=== PATIENT | male | born 1960 | race Caucasian/White ===

== ENCOUNTER → 2021-10-19 14:29 | Outpatient (BNVA) | payer BC, SELFPAY | PROVIDERS: PCP Internal Medicine; Visit Provider Hospitalist ==

== ENCOUNTER 2021-11-18 06:52 | Outpatient (REF) | payer BC, SELFPAY ==
--- NOTE | ~2021-11-18 | CT_ITS ---
EXAMINATION: CT CHEST WITH CONTRAST CLINICAL INFORMATION: Chronic obstructive pulmonary disease. COMPARISON: CT chest 07/30/2020. TECHNIQUE: Multidetector volumetric CT imaging of the chest was obtained after the administration of 50 mL of Omnipaque 350 intravenous contrast without immediate adverse reactions. Axial MIP volume rendering provided. Sagittal and coronal reformatted images were obtained. This CT examination was performed using dose optimization techniques as appropriate, variously including the following: *Automated exposure control *Adjustment of mA and/or kV according to patient size (this includes techniques or standardized protocols for targeted exams where dose is matched to indication/reason for exam; i.e. extremities or head) *Use of iterative reconstruction technique DLP: 136 mGy-cm FINDINGS: Lungs: *Unchanged 2 mm benign punctate calcified granuloma right upper pulmonary lobe (series 7 image 106) unchanged compared with 07/30/2020. *Unchanged 3 mm pleural-based nodule superior segment of the right lower pulmonary lobe (series 7 image 63). *Unchanged chronic mild herniation of the right lung into the right lateral intercostal space between the fourth and fifth ribs and posterior costal space between the right ninth and 10th ribs. *The 2 mm nodule which was noted in the lingula on the comparison exam which is stable at that time is without a specific correlate on the current exam. Several coarse benign-appearing reticular opacities within the lingula are increased in prominence and may represent minimal chronic parenchymal scarring. *Unchanged 5 mm left lower lobe solid noncalcified nodule (series 7 image 162). *Unchanged 2 mm subplural noncalcified pulmonary nodule left lower pulmonary lobe series 7 image 164. *Unchanged 2 mm subpleural noncalcified pulmonary nodule within the right lung base (series 7 image 167). *Moderate centrilobular emphysema of the lungs is noted along with mild biapical pleural parenchymal scarring. Mediastinum: No lymphadenopathy. Mild scattered calcific atherosclerosis. The ascending thoracic aorta measures up to 3.7 cm in transaxial dimension, at the upper limits of normal. Normal caliber of the main and central pulmonary arteries. Normal heart size. No pericardial thickening or fluid collections. CHEST WALL: No axillary lymphadenopathy. Visualized abdominal structures: Cholecystectomy clips noted. The benign-appearing right renal cyst measuring at least 6.5 cm in diameter is partially included in the image [id number] and is grossly unchanged. This finding is benign in appearance and requires no additional imaging follow-up on the basis of this examination. Normal appearance of the adrenal glands. Osseous structures: Minimal multilevel endplate osteophytosis of the thoracic spine. CT/CT chest w con IMPRESSION: *Multiple stable, benign-appearing pulmonary nodules which on the basis of this exam and the report of stability dating back to 08/15/2018 noted on the comparison exam of 07/30/2020 are overwhelmingly likely to be benign and do not specifically warranted additional imaging follow-up on the basis of the 2017 revised Fleischner Society pulmonary nodule recommendations. *Centrilobular emphysema.
[2021-11-18 07:29] LABS: Anion Gap 12 (12-20); Blood Urea Nitrogen 23 mg/dL (9-16); Calcium 10.2 mg/dL (8.4-10.2); Carbon Dioxide 28 mmol/L (22-29); Chloride 106 mmol/L (96-108); Estimated Glomerular Filt Rate > 60; Glucose Random 120 mg/dL (60-115); Sodium 141 mmol/L (135-145)
[2021-11-18] MEDS: iohexoL 350 MG/ML 100 ML INFUS..BTL 65 ML IV (08:49)
== END 2021-11-18 06:53 | disposition home or self-care (01) ==
LOC: HO.CT 06:52
PROVIDERS: PCP Internal Medicine; Visit Provider Hospitalist
DX: J44.9 Chronic obstructive pulmonary disease, unspecified (principal); R91.8 Other nonspecific abnormal finding of lung field; I71.9 Aortic aneurysm of unspecified site, without rupture; C34.90 Malignant neoplasm of unspecified part of unspecified bronchus or lung
CPT/HCPCS: 36415; 71260; 80048; Q9967

== ENCOUNTER → 2022-01-20 10:49 | Outpatient (BNVA) | payer BC, SELFPAY | PROVIDERS: PCP Internal Medicine; Visit Provider Hospitalist | DX: J44.9 Chronic obstructive pulmonary disease, unspecified (principal); R91.8 Other nonspecific abnormal finding of lung field; C34.90 Malignant neoplasm of unspecified part of unspecified bronchus or lung; I71.9 Aortic aneurysm of unspecified site, without rupture ==

== ENCOUNTER 2022-08-13 08:22 | Outpatient (REF) | payer BC, SELFPAY ==
--- NOTE | 2022-08-13 17:36 | PFT_ITS ---
INDICATION: Dyspnea. SPIROMETRY: FEV1 to FVC of 43% with an FEV1 of 2.12 L which is 67% predicted and an FVC of 4.88 L, which is 117% predicted. There was a significant response to bronchodilators noted to note. There is also significant small airways disease. The maximum voluntary ventilation 59% predicted. LUNG VOLUMES: Total lung capacity 105% predicted with a residual volume of 102% predicted. DIFFUSION CAPACITY: DLCO 75% predicted. INTERPRETATION: There was an obstructive ventilatory defect consistent with moderate COPD. There was a significant response to bronchodilators noted. In addition to that, the patient does have significant small airways disease contributing to his symptoms of dyspnea. Although no evidence of any air trapping or hyperinflation at this time. The patient also has some mild diffusion impairment. Clinical correlation warranted. Mirza Humphreys MD MR/MODL / [id number]
== END 2022-08-13 08:23 | disposition home or self-care (01) ==
LOC: HO.RESP 08:22
PROVIDERS: PCP Internal Medicine; Visit Provider Hospitalist
DX: J41.0 Simple chronic bronchitis (principal)
CPT/HCPCS: 94060; 94727; 94729

== ENCOUNTER 2022-09-27 10:23 | Outpatient (REF) | payer BC, SELFPAY ==
--- NOTE | ~2022-09-27 | CT_ITS ---
EXAMINATION: CT CHEST WITHOUT CONTRAST CLINICAL INFORMATION: Follow up pulmonary nodules. COMPARISON: Previous chest CT scans, most recent in 10/2021. TECHNIQUE: Multidetector volumetric CT imaging of the chest was done. Axial MIP volume rendering provided. Sagittal and coronal reformatted images were obtained. This CT examination was performed using dose optimization techniques as appropriate, variously including the following: *Automated exposure control *Adjustment of mA and/or kV according to patient size (this includes techniques or standardized protocols for targeted exams where dose is matched to indication/reason for exam; i.e. extremities or head) *Use of iterative reconstruction technique DLP: 172 mGy-cm FINDINGS: LUNGS: Postoperative change following right upper lobe lobectomy. There is evidence of emphysema. There is biapical pleural and parenchymal scarring, right greater than left. This is unchanged. There are small pulmonary nodules that are stable. The largest pulmonary nodule measures 5 mm in the left lower lobe, axial image 410, series 7. No new pulmonary nodule. There is slight herniation of the right upper lobe into the right lateral chest wall in between the 4th and 5th ribs, and right lower lobe in between the right 9th and 10th ribs. This is unchanged. MEDIASTINUM: Upper normal size ascending thoracic aorta. Aortic arch and descending thoracic aorta are normal in caliber. Normal heart size. Small mediastinal lymph nodes. No enlarged lymph nodes. No pericardial effusion. CORONARY ARTERY CALCIFICATION: Mild. PLEURA: There is no pleural effusion. No pleural mass or thickening. AXILLA: No lymphadenopathy. UPPER ABDOMEN: Right renal cyst. Postcholecystectomy. OSSEOUS STRUCTURES: Unremarkable. CT/CT chest wo IV con IMPRESSION: Stable pulmonary nodules. Emphysema. Stable postoperative changes from right upper lobe lobectomy. Fleischner guidelines were followed.
== END 2022-09-27 10:24 | disposition home or self-care (01) ==
LOC: HO.CT 10:23
PROVIDERS: PCP Internal Medicine; Visit Provider Hospitalist
DX: R91.8 Other nonspecific abnormal finding of lung field (principal)
CPT/HCPCS: 71250

== ENCOUNTER → 2022-12-06 14:18 | Outpatient (BNVA) | payer BC, SELFPAY | PROVIDERS: PCP Internal Medicine; Visit Provider Hospitalist | DX: J44.1 Chronic obstructive pulmonary disease with (acute) exacerbation (principal); R91.8 Other nonspecific abnormal finding of lung field; G47.33 Obstructive sleep apnea (adult) (pediatric); I71.9 Aortic aneurysm of unspecified site, without rupture; Z99.89 Dependence on other enabling machines and devices | CPT/HCPCS: 96372; J2930 ==

== ENCOUNTER 2022-12-14 11:40 | Emergency (ER) | payer BC, SELFPAY ==
--- NOTE | ~2022-12-14 | US_ITS ---
EXAMINATION: LEFT LOWER EXTREMITY DEEP VENOUS ULTRASOUND CLINICAL INFORMATION: Left leg pain COMPARISON: None. TECHNIQUE: Duplex Doppler imaging with compression maneuvers were performed of the left lower extremity deep venous system. FINDINGS: The visualized common femoral, femoral and popliteal veins demonstrate normal compressibility and color flow without evidence of venous thrombosis. Visualized portions of the calf veins demonstrate normal color fill-in suggesting patency. There is no evidence of a Powell's cyst. US/US venous duplex LE LT IMPRESSION: No evidence of deep venous thrombosis involving the left lower extremity.
--- NOTE | ~2022-12-14 | XR_ITS ---
EXAMINATION: XR CHEST, 2 VIEWS CLINICAL INFORMATION: Cough COMPARISON: Chest CT dated 09/27/2022 TECHNIQUE: PA and lateral views of the chest were obtained. FINDINGS: Lungs are hyperlucent and hyperexpanded tendon consistent with underlying emphysema. No consolidation, pneumothorax, or pleural effusion. Cardiac and mediastinal contours are normal. Calcific atherosclerosis in the thoracic aorta. Degenerative disc disease in the thoracic spine. Old healed left-sided rib fractures. XR/XR chest 2V IMPRESSION: No acute cardiopulmonary findings. Pulmonary emphysema.
--- NOTE | ~2022-12-14 | CT_ITS ---
EXAMINATION: CT ANGIOGRAM OF THE CHEST WITH AND WITHOUT CONTRAST (CT PULMONARY ANGIOGRAM FOR PE) CLINICAL INFORMATION: Reason for Exam cough/sob/lle pain hx of lung cancer ? PE COMPARISON: None TECHNIQUE: Prior to contrast administration, noncontrast localization images were obtained. Subsequently, multidetector volumetric imaging was performed from the thoracic inlet to below the diaphragms following the administration of 65 mL Omnipaque 350 intravenous contrast. No contrast reaction reported Sagittal, coronal, and MIP oblique sagittal reformatted images were obtained on the CT workstation, uploaded to PACS, and reviewed. This CT examination was performed using dose optimization techniques as appropriate, variously including the following: *Automated exposure control *Adjustment of mA and/or kV according to patient size (this includes techniques or standardized protocols for targeted exams where dose is matched to indication/reason for exam; i.e. extremities or head) *Use of iterative reconstruction technique Total exam dose-length product 276 mGy-cm FINDINGS: QUALITY OF STUDY/CONTRAST BOLUS: Satisfactory. PULMONARY ARTERIES: No central or segmental pulmonary emboli. THORACIC AORTA: Borderline dilated ascending thoracic aorta measuring approximate 4-4.1 cm in diameter. Mild vascular calcifications. Arch origins patent. LUNG: Status post right upper lobectomy. Moderate centrilobular emphysema. 5 mm subpleural left lower lobe pulmonary nodule series 502 image 308 and adjacent smaller sub-4 mm nodules in the left lower lobe, unchanged since 09/27/2022. Small calcified granulomas in the right middle and left upper lobes redemonstrated. Few tiny pleural-based calcified granulomas in the right lower lobe. Mild apical pleural parenchymal thickening/scarring. Slightly more prominent irregular perifissural thickening along the upper aspect of the right oblique fissure in the middle lobe, image 51/457 and image 85. Findings also seen best on coronal images 65 through 68. No airspace consolidation. Mild linear scarring in the lingula. Mild bronchial wall thickening and mucous/secretions and lower lobe bronchi bilaterally. Central airways otherwise clear. No soft tissue mass at the right upper lobectomy resection margin. PLEURA: No pleural effusion or pneumothorax. MEDIASTINUM: Normal heart size. No pericardial effusion. No hilar or mediastinal lymphadenopathy. No evidence of septal bowing or right heart strain. CORONARY ARTERY CALCIFICATION: None visualized on this study. CHEST WALL/AXILLA: No axillary or internal mammary lymphadenopathy. OSSEOUS STRUCTURES: No acute fracture or suspicious osseous lesion. Mild multilevel degenerative disc disease. Mild splaying of the fourth and fifth ribs on the right consistent with prior thoracotomy. UPPER ABDOMEN: Status post cholecystectomy. Small hiatal hernia. Visualized upper abdominal viscera otherwise unremarkable. No reflux of contrast into the hepatic veins to suggest elevated right heart pressures. CT/CT angio chest PE protocol IMPRESSION: 1. No evidence of pulmonary embolus. 2. No airspace consolidation or effusions. 3. Moderate centrilobular emphysema. 4. Status post right upper lobectomy. Interval development of irregular linear perifissural thickening along the upper right oblique fissure at the right lung apex since most recent prior. Would suggest follow-up CT in 3 months to assess stability. 5. Unchanged existing small pulmonary nodules in the left lower lobe. VTE: negative
[2022-12-14 11:52] VITALS: BP 175/100; PULSE 84; RESP 20; TEMP 36.8; O2SAT 96; BMI 26.3
--- NOTE | 2022-12-14 11:52 | ED.LOWEXIN ---
HPI - Extremity Injury (Lower) General Chief Complaint: Extremity Problem <SALIMA Shaw - Last Filed: 12/14/22 11:54> Stated Complaint: Blood clot L leg? <SALIMA Shaw - Last Filed: 12/14/22 11:54> Time Seen by Provider: 12/14/22 12:52 <SALIMA Shaw - Last Filed: 12/14/22 11:54> Source: patient <SALIMA Rivas Last Filed: 12/14/22 16:40> Mode of arrival: ambulatory <SALIMA Rivas Last Filed: 12/14/22 16:40> Limitations: no limitations <SALIMA Rivas Last Filed: 12/14/22 16:40> History of Present Illness HPI Narrative: 62-year-old male with a past medical history of lung cancer status post resection and chemo in 2007 being followed by [facility], COPD/emphysema, strep this sleep apnea on CPAP who is presenting to the ER with complaints of left posterior thigh/ knee pain /lateral lower leg pain over the past few weeks worse today. Reports that he has also had cough with shortness of breath since September. Reports that he was treated for possible bronchitis infection 2-3 times since September and he continues with a cough and shortness of breath. He reports that he called his slide maker today in his slide maker sent him here to rule out DVT to his left lower extremity. He denies any fevers, chills, dizziness, headaches, neck pain / stiffness, chest pain, orthopnea, palpitations, nausea/ vomiting/ diarrhea, abdominal pain, flank pain, dysuria, lower extremity edema, recent travel or sick contacts, rashes, recent falls or trauma, sputum production or any other symptoms complaints or concerns at this time. <SALIMA Rivas Last Filed: 12/14/22 16:40> MD complaint: other ( Left leg pain) <SALIMA Rivas Last Filed: 12/14/22 16:40> Onset (ago): week(s) ( for the past few weeks worse in the past week) <SALIMA Rivas Last Filed: 12/14/22 16:40> Injury: Left: thigh and knee <SALIMA Rivas Last Filed: 12/14/22 16:40> Severity: mild <SALIMA Rivas - Last Filed: 12/14/22 16:40> Relieving factors: nothing <SALIMA Rivas - Last Filed: 12/14/22 16:40> Exacerbating factors: movement and palpation <SALIMA Rivas - Last Filed: 12/14/22 16:40> Context: other ( see above) <SALIMA Rivas - Last Filed: 12/14/22 16:40> Other symptoms: SOB ( and cough) <SALIMA Rivas - Last Filed: 12/14/22 16:40> Related Data Home Medications: Home Medications Medication Instructions Recorded Confirmed sildenafil 100 mg tablet 100 mg PO 01/20/22 nebulizers 09/10/22 azithromycin 250 mg tablet 250 mg PO DIRECTED 12/06/22 montelukast 10 mg tablet 10 mg PO DAILY 12/06/22 prednisone 20 mg tablet 20 mg PO BID 12/06/22 Previous Rx's Medication Instructions Recorded [facility] ##1 06/07/22 (inhalational spacing device) ipratropium 0.5 mg-albuterol 3 mg 3 ml inhalation BID 30 days #180 mL 09/17/22 (2.5 mg base)/3 mL nebulization soln albuterol sulfate 90 mcg/actuation 2 inh inhalation Q6H PRN shortness 10/06/22 aerosol inhaler of breath or wheezing 30 days #18 grams Symbicort 160 mcg-4.5 2 puff inhalation BID #10.2 ea 11/16/22 mcg/actuation HFA aerosol inhaler (budesonide-formoterol) prednisone 10 mg tablet See Rx Instructions PO DAILY 18 12/06/22 days #30 tabs tiotropium bromide 2.5 2 puff inhalation DAILY 30 days #1 12/06/22 mcg/actuation mist for inhalation ea (Spiriva Respimat) cyclobenzaprine 10 mg tablet 10 mg PO Q8H #14 tabs 12/14/22 <SALIMA Shaw Last Filed: 12/14/22 11:54> Allergies/Adverse Reactions: Allergies Allergy/AdvReac Type Severity Reaction Status Date / Time No Known Allergies Allergy Verified 12/06/22 14:31 <SALIMA Shaw - Last Filed: 12/14/22 11:54> Review of Systems Review of Systems: Constitutional : No Weight loss, No Fever, No Chills, No Night Sweats, No Fatigue, No Malaise ENT/Mouth : No Hearing loss, No Ear Pain, No Nasal Congestion, No Sinus Pain, No Hoarseness, No sore throat, No Rhinorrhea, No Swallowing Difficulty Eyes: No Eye Pain, No Swelling, No Redness, No Foreign Body, No Discharge, No Vision Changes Cardiovascular : No Chest Pain, + SOB, No Dyspnea on Exertion, No Orthopnea, No Edema, No Palpitations Respiratory : + Cough, No Sputum, No Wheezing, No Smoke Exposure, No Dyspnea Gastrointestinal : No Nausea, No Vomiting, No Diarrhea, No Constipation, No abdominal Pain, No Hematochezia, No Melena Genitourinary : no irregular bleeding, No Dysuria, No Urinary Frequency, No Hematuria, No Urinary Incontinence, No Urgency, No Flank Pain, No Urinary Flow Changes, No Hesitancy Musculoskeletal : + left thigh/knee pain posterior aspect joint pain, No Myalgias, No Joint Swelling Skin : No Skin Lesions, No rash Neuro : No Weakness, No Numbness, No Paresthesias, No Loss of Consciousness, No Dizziness, No Headache Psych : No Anxiety/Panic, No Depression, No SI/HI/AH/VH, No Social Issues, Heme/Lymph: No Bruising, No Bleeding,No Lymphadenopathy Endocrine : No Polyuria, No Polydipsia, No Temperature Intolerance <SALIMA Rivas - Last Filed: 12/14/22 16:40> Yes all other systems are reviewed and are negative <SALIMA Rivas - Last Filed: 12/14/22 16:40> [facility] Past Medical History Attestation statement: The following information was validated with the patient. <SALIMA Rivas - Last Filed: 12/14/22 16:40> Source: old records reviewed and nursing notes reviewed <SALIMA Rivas - Last Filed: 12/14/22 16:40> Medical History: Medical History Aortic aneurysm COPD (chronic obstructive pulmonary disease) Glaucoma Lung cancer DREW on CPAP Peripheral neuropathy Pulmonary nodules <SALIMA Shaw - Last Filed: 12/14/22 11:54> Social History Social History: Social History Patient Tobacco Use Status: Former Tobacco user Tobacco use type: Cigarette Years Smoked: 25 Years Advance Directives: Yes Advance Directives Information Provided: No Advance Directives on File: No <SALIMA Shaw - Last Filed: 12/14/22 11:54> Physical Exam Vital Signs: Vital Signs: Last Vital Signs Temp 98.3 F 12/14/22 15:49 Pulse 66 12/14/22 15:49 Resp 16 12/14/22 15:49 BP 151/101 H 12/14/22 15:49 Pulse Ox 95 12/14/22 15:49 O2 Del Method 12/14/22 15:49 BMI result Body Mass Index 26.3 <SALIMA Shaw - Last Filed: 12/14/22 11:54> Vital Signs: Last Vital Signs Temp 98.3 F 12/14/22 15:49 Pulse 66 12/14/22 15:49 Resp 16 12/14/22 15:49 BP 151/101 H 12/14/22 15:49 Pulse Ox 95 12/14/22 15:49 O2 Del Method 12/14/22 15:49 BMI result Body Mass Index 26.3 Vital signs reviewed. Blood pressure 175/100. Pulse normal. Respiration normal. Oxygen normal. Temperature normal. <SALIMA Rivas - Last Filed: 12/14/22 16:40> Appearance: Alert. Oriented X3. No acute distress. Head: Normal external exam. Normocephalic. Atraumatic. Eyes: PERRLA. EOMI. Conjunctiva and sclera normal. Eyelids normal. ENT: EAC normal. TM's Normal. Pharynx normal. Uvula midline. Moist mucous membranes. No lesions/ulcerations or masses noted on the tongue. Normal voice. No trismus noted. No drooling noted. No muffled voice noted. Neck: Normal inspection. Neck supple. FROM. No adenopathy. Thyroid Normal. No meningeal signs. CVS: Normal heart rate and rhythm. Heart sound normal. Pulses normal throughout. No murmurs/rales/gallops. Respiratory: No respiratory distress. Painless inspiration. Breath sounds normal. No wheezes/rales/rhonchi noted. Chest nontender. No accessory muscle usage noted or decreased air movement noted. Abdomen: Soft and nontender. Back: Full range of motion noted. Nontender. Skin: Skin warm and dry. Normal skin color. Normal skin turgor. No rashes/lesions/lacerations noted. Extremities: patient mild tenderness palpation to the posterior thigh and posterior knee although no obvious ligamentous or tendon injury noted to the left hip/knee / ankle and foot joint. He has full range of motion of the left hip/ankle/ foot and knee joint. There is no lower extremity edema or calf tenderness noted. There are no rashes or signs of infection noted. Otherwise all other Extremities exhibit normal range of motion and nontender. Neuro: Oriented X 3. No motor deficit. No sensory deficit. Reflexes normal. Normal steady gait. No focal neuro deficits noted. CN's II-XII intact bilaterally? Vascular: + radial pulses. Normal cap refill. No cyanosis noted to upper extremity nails <SALIMA Rivas - Last Filed: 12/14/22 16:40> Course Course Course Narrative: RME - 62 yo male with history of lung cancer s/p resection and chemo in 2007, COPD, DREW on CPAP who presents with left leg pain for the last several days. Recent cold/cough for last couple of weeks with lots of coughing, had some SOB and chest pains then that have resolved. COVID negative multiple times. He discussed his symptoms with Senior Bioinformatics Scientist who recommended he come to the ER to r/o DVT. <SALIMA Shaw - Last Filed: 12/14/22 11:54> Reevaluation(s) Reevaluation #1: 62 yo male with history of lung cancer s/p resection and chemo in 2007, COPD, DREW on CPAP who presents with left leg pain for the last several weeks worse in the past few days. Also reports a persistent cough that is nonproductive with shortness of breath since September. Patient most likely COPD/ emphysema chronic cough although due to history of lung cancer need to rule out PE. Also need to rule out DVT. H &P not consistent with pneumonia/pneumothorax /ACS/CHF although considered. therefore at this time will obtain labs, chest x-ray, venous duplex ultrasound of left lower extremity and a CT of chest for PE and re-evaluate. <SALIMA Rivas - Last Filed: 12/14/22 16:40> Time: 13:50 <SALIMA Rivas - Last Filed: 12/14/22 16:40> Reevaluation #2: labs reviewed patient with leukocytosis of 15,000. BUN 26 which is mildly increased when compared to prior. Random glucose 182. AST/ALT 65/51. Otherwise all other labs are within normal limits. Chest x-ray results revealed pulmonary emphysema otherwise no other acute processes noted. Venous duplex ultrasound of left lower extremity negative for DVT or any other acute processes. CTA of chest for PE negative for PE or consolidations or effusions although revealed emphysema and irregular linear rashel fissure thickening along the upper right oblique fissure at the right lung apex since most recent prior. Will suggest follow-up CT in 3 months to assess stability. on change existing small pulmonary nodules in left lower lobe otherwise no other acute processes noted. Therefore will DC home with instructions to follow-up with his PCP/ slide maker and to return if any new or worsening symptoms. Patient understands agrees with this plan. <SALIMA Rivas - Last Filed: 12/14/22 16:40> Time: 16:34 <SALIMA Rivas - Last Filed: 12/14/22 16:40> Medications Administered Discontinued Medications Generic Name Dose Route Start Last Admin Trade Name Freq PRN Reason Stop Dose Admin Iohexol 100 ml 12/14/22 15:31 12/14/22 15:32 Iohexol 350 Mg/Ml 100 Ml Infus..Btl IV 12/14/22 15:32 65 ml ONCE ONE Administration <SALIMA Shaw - Last Filed: 12/14/22 11:54> Medications Administered Discontinued Medications Generic Name Dose Route Start Last Admin Trade Name Freq PRN Reason Stop Dose Admin Iohexol 100 ml 12/14/22 15:31 12/14/22 15:32 Iohexol 350 Mg/Ml 100 Ml Infus..Btl IV 12/14/22 15:32 65 ml ONCE ONE Administration <SALIMA Rivas - Last Filed: 12/14/22 16:40> Medical Decision Making Lab Data MDM Lab Attestation statement: I reviewed the patient's lab results. <SALIMA Rivas - Last Filed: 12/14/22 16:40> Result Diagrams: 12/14/22 14:15 12/14/22 14:15 <SALIMA Sahw - Last Filed: 12/14/22 11:54> Labs: Lab Results 12/14/22 12/14/22 12/14/22 Range/Units 14:15 14:15 14:15 WBC 15.0 H (4.8-10.8) X10*3/uL RBC 5.60 (4.60-5.80) X10*6/uL Hgb 16.3 (14.0-18.0) g/dl Hct 48.9 (42.0-52.0) % MCV 87.3 (80.0-98.0) fL MCH 29.1 (27.0-33.0) pg MCHC 33.3 (31.0-36.0) g/dl RDW 14.4 (11.0-16.0) % Plt Count 274 (160-400) X10*3/uL MPV 10.4 (9.4-12.4) fL Immature Gran % (Auto) Cancelled Neut % (Auto) Cancelled Lymph % (Auto) Cancelled [place] % (Auto) Cancelled Eos % (Auto) Cancelled Baso % (Auto) Cancelled Lymph # (Auto) Cancelled [place] # (Auto) Cancelled Eos # (Auto) Cancelled Baso # (Auto) Cancelled Abs Immat Gran (auto) Cancelled Absolute Neuts (auto) Cancelled Absolute Nucleated RBC 0.000 (0.0-0.012) X10*3/uL Nucleated RBC % (auto) 0.0 (0.0-0.2) /100WBC Neutrophils % (Manual) 74 H (45-73) % Band Neutrophils % 10 H (3-5) % Lymphocytes % (Manual) 11 L (20-40) % Monocytes % (Manual) 5 (2-11) % Abs Neuts (Manual) 12.6 H (2.0-8.3) X10*3/uL Lymphocytes # (Manual) 1.7 (1.2-4.9) X10*3/uL Monocytes # (Manual) 0.8 (0.1-1.2) X10*3/uL Platelet Estimate NORMAL (NORMAL) Plt Morphology Comment NORMAL RBC Morphology NOTED Tear Drop Cells 1+ (0-2) /OIF Travis Cells 1+ (0-2) /OIF Schistocytes 1+ (0-2) /OIF PT 10.4 (10.0-13.1) SEC INR 0.9 (0.9-1.1) APTT 25.5 L (26.0-36.4) SEC Sodium 136 (135-145) mmol/L Potassium 5.1 (3.3-5.1) mmol/L Chloride 101 (96-108) mmol/L Carbon Dioxide 24 (22-29) mmol/L Anion Gap 16 (12-20) BUN 26 H (9-16) mg/dL Creatinine 1.30 (0.5-1.4) mg/dL Estim Creat Clear Calc 56.2 Estimated GFR 56 Random Glucose 182 H (60-115) mg/dL Calcium 9.7 (8.4-10.2) mg/dL Magnesium 2.1 (1.6-2.6) mg/dL Total Bilirubin 0.3 (0.0-1.0) mg/dL AST 65 H (5-37) U/L ALT 51 H (0-40) U/L Alkaline Phosphatase 73 (39-117) U/L B-Natriuretic Peptide (<100) pg/mL Total Protein 7.0 (6.5-8.0) g/dL Albumin 4.2 (3.5-5.0) g/dL 12/14/22 Range/Units 14:15 WBC (4.8-10.8) X10*3/uL RBC (4.60-5.80) X10*6/uL Hgb (14.0-18.0) g/dl Hct (42.0-52.0) % MCV (80.0-98.0) fL MCH (27.0-33.0) pg MCHC (31.0-36.0) g/dl RDW (11.0-16.0) % Plt Count (160-400) X10*3/uL MPV (9.4-12.4) fL Immature Gran % (Auto) Neut % (Auto) Lymph % (Auto) [place] % (Auto) Eos % (Auto) Baso % (Auto) Lymph # (Auto) [place] # (Auto) Eos # (Auto) Baso # (Auto) Abs Immat Gran (auto) Absolute Neuts (auto) Absolute Nucleated RBC (0.0-0.012) X10*3/uL Nucleated RBC % (auto) (0.0-0.2) /100WBC Neutrophils % (Manual) (45-73) % Band Neutrophils % (3-5) % Lymphocytes % (Manual) (20-40) % Monocytes % (Manual) (2-11) % Abs Neuts (Manual) (2.0-8.3) X10*3/uL Lymphocytes # (Manual) (1.2-4.9) X10*3/uL Monocytes # (Manual) (0.1-1.2) X10*3/uL Platelet Estimate (NORMAL) Plt Morphology Comment RBC Morphology Tear Drop Cells /OIF Travis Cells /OIF Schistocytes /OIF PT (10.0-13.1) SEC INR (0.9-1.1) APTT (26.0-36.4) SEC Sodium (135-145) mmol/L Potassium (3.3-5.1) mmol/L Chloride (96-108) mmol/L Carbon Dioxide (22-29) mmol/L Anion Gap (12-20) BUN (9-16) mg/dL Creatinine (0.5-1.4) mg/dL Estim Creat Clear Calc Estimated GFR Random Glucose (60-115) mg/dL Calcium (8.4-10.2) mg/dL Magnesium (1.6-2.6) mg/dL Total Bilirubin (0.0-1.0) mg/dL AST (5-37) U/L ALT (0-40) U/L Alkaline Phosphatase (39-117) U/L B-Natriuretic Peptide 32 (<100) pg/mL Total Protein (6.5-8.0) g/dL Albumin (3.5-5.0) g/dL <SALIMA Shaw - Last Filed: 12/14/22 11:54> Lab Results 12/14/22 12/14/22 12/14/22 Range/Units 14:15 14:15 14:15 WBC 15.0 H (4.8-10.8) X10*3/uL RBC 5.60 (4.60-5.80) X10*6/uL Hgb 16.3 (14.0-18.0) g/dl Hct 48.9 (42.0-52.0) % MCV 87.3 (80.0-98.0) fL MCH 29.1 (27.0-33.0) pg MCHC 33.3 (31.0-36.0) g/dl RDW 14.4 (11.0-16.0) % Plt Count 274 (160-400) X10*3/uL MPV 10.4 (9.4-12.4) fL Immature Gran % (Auto) Cancelled Neut % (Auto) Cancelled Lymph % (Auto) Cancelled [place] % (Auto) Cancelled Eos % (Auto) Cancelled Baso % (Auto) Cancelled Lymph # (Auto) Cancelled [place] # (Auto) Cancelled Eos # (Auto) Cancelled Baso # (Auto) Cancelled Abs Immat Gran (auto) Cancelled Absolute Neuts (auto) Cancelled Absolute Nucleated RBC 0.000 (0.0-0.012) X10*3/uL Nucleated RBC % (auto) 0.0 (0.0-0.2) /100WBC Neutrophils % (Manual) 74 H (45-73) % Band Neutrophils % 10 H (3-5) % Lymphocytes % (Manual) 11 L (20-40) % Monocytes % (Manual) 5 (2-11) % Abs Neuts (Manual) 12.6 H (2.0-8.3) X10*3/uL Lymphocytes # (Manual) 1.7 (1.2-4.9) X10*3/uL Monocytes # (Manual) 0.8 (0.1-1.2) X10*3/uL Platelet Estimate NORMAL (NORMAL) Plt Morphology Comment NORMAL RBC Morphology NOTED Tear Drop Cells 1+ (0-2) /OIF Travis Cells 1+ (0-2) /OIF Schistocytes 1+ (0-2) /OIF PT 10.4 (10.0-13.1) SEC INR 0.9 (0.9-1.1) APTT 25.5 L (26.0-36.4) SEC Sodium 136 (135-145) mmol/L Potassium 5.1 (3.3-5.1) mmol/L Chloride 101 (96-108) mmol/L Carbon Dioxide 24 (22-29) mmol/L Anion Gap 16 (12-20) BUN 26 H (9-16) mg/dL Creatinine 1.30 (0.5-1.4) mg/dL Estim Creat Clear Calc 56.2 Estimated GFR 56 Random Glucose 182 H (60-115) mg/dL Calcium 9.7 (8.4-10.2) mg/dL Magnesium 2.1 (1.6-2.6) mg/dL Total Bilirubin 0.3 (0.0-1.0) mg/dL AST 65 H (5-37) U/L ALT 51 H (0-40) U/L Alkaline Phosphatase 73 (39-117) U/L B-Natriuretic Peptide (<100) pg/mL Total Protein 7.0 (6.5-8.0) g/dL Albumin 4.2 (3.5-5.0) g/dL 12/14/22 Range/Units 14:15 WBC (4.8-10.8) X10*3/uL RBC (4.60-5.80) X10*6/uL Hgb (14.0-18.0) g/dl Hct (42.0-52.0) % MCV (80.0-98.0) fL MCH (27.0-33.0) pg MCHC (31.0-36.0) g/dl RDW (11.0-16.0) % Plt Count (160-400) X10*3/uL MPV (9.4-12.4) fL Immature Gran % (Auto) Neut % (Auto) Lymph % (Auto) [place] % (Auto) Eos % (Auto) Baso % (Auto) Lymph # (Auto) [place] # (Auto) Eos # (Auto) Baso # (Auto) Abs Immat Gran (auto) Absolute Neuts (auto) Absolute Nucleated RBC (0.0-0.012) X10*3/uL Nucleated RBC % (auto) (0.0-0.2) /100WBC Neutrophils % (Manual) (45-73) % Band Neutrophils % (3-5) % Lymphocytes % (Manual) (20-40) % Monocytes % (Manual) (2-11) % Abs Neuts (Manual) (2.0-8.3) X10*3/uL Lymphocytes # (Manual) (1.2-4.9) X10*3/uL Monocytes # (Manual) (0.1-1.2) X10*3/uL Platelet Estimate (NORMAL) Plt Morphology Comment RBC Morphology Tear Drop Cells /OIF [place] Cells /OIF Schistocytes /OIF PT (10.0-13.1) SEC INR (0.9-1.1) APTT (26.0-36.4) SEC Sodium (135-145) mmol/L Potassium (3.3-5.1) mmol/L Chloride (96-108) mmol/L Carbon Dioxide (22-29) mmol/L Anion Gap (12-20) BUN (9-16) mg/dL Creatinine (0.5-1.4) mg/dL Estim Creat Clear Calc Estimated GFR Random Glucose (60-115) mg/dL Calcium (8.4-10.2) mg/dL Magnesium (1.6-2.6) mg/dL Total Bilirubin (0.0-1.0) mg/dL AST (5-37) U/L ALT (0-40) U/L Alkaline Phosphatase (39-117) U/L B-Natriuretic Peptide 32 (<100) pg/mL Total Protein (6.5-8.0) g/dL Albumin (3.5-5.0) g/dL <SALIMA Rivas - Last Filed: 12/14/22 16:40> Independent Interpretation I performed an independent interpretation of an: Plain X-Ray and Ultrasound <SALIMA Rivas - Last Filed: 12/14/22 16:40> Interpretation: chest x-ray results FINDINGS: Lungs are hyperlucent and hyperexpanded tendon consistent with underlying emphysema. No consolidation, pneumothorax, or pleural effusion. Cardiac and mediastinal contours are normal. Calcific atherosclerosis in the thoracic aorta. Degenerative disc disease in the thoracic spine. Old healed left-sided rib fractures. XR/XR chest 2V IMPRESSION: No acute cardiopulmonary findings. Pulmonary emphysema. Venous duplex ultrasound of left lower extremity FINDINGS: The visualized common femoral, femoral and popliteal veins demonstrate normal compressibility and color flow without evidence of venous thrombosis. ? Visualized portions of the calf veins demonstrate normal color fill-in suggesting patency. There is no evidence of a Powell's cyst. US/US venous duplex LE LT IMPRESSION: No evidence of deep venous thrombosis involving the left lower extremity. CTA of chest for PE FINDINGS: QUALITY OF STUDY/CONTRAST BOLUS: Satisfactory. PULMONARY ARTERIES: No central or segmental pulmonary emboli.? THORACIC AORTA: Borderline dilated ascending thoracic aorta measuring approximate 4-4.1 cm in diameter. Mild vascular calcifications. Arch origins patent. LUNG: Status post right upper lobectomy. Moderate centrilobular emphysema. 5 mm subpleural left lower lobe pulmonary nodule series 502 image 308 and adjacent smaller sub-4 mm nodules in the left lower lobe, unchanged since 09/27/2022. Small calcified granulomas in the right middle and left upper lobes redemonstrated. Few tiny pleural-based calcified granulomas in the right lower lobe. Mild apical pleural parenchymal thickening/scarring. Slightly more prominent irregular perifissural thickening along the upper aspect of the right oblique fissure in the middle lobe, image 51/457 and image 85. Findings also seen best on coronal images 65 through 68. No airspace consolidation. Mild linear scarring in the lingula. Mild bronchial wall thickening and mucous/secretions and lower lobe bronchi bilaterally. Central airways otherwise clear. No soft tissue mass at the right upper lobectomy resection margin. PLEURA: No pleural effusion or pneumothorax. MEDIASTINUM: Normal heart size.? No pericardial effusion.? No hilar or mediastinal lymphadenopathy.? No evidence of septal bowing or right heart strain. CORONARY ARTERY CALCIFICATION: None visualized on this study. CHEST WALL/AXILLA: No axillary or internal mammary lymphadenopathy. OSSEOUS STRUCTURES: No acute fracture or suspicious osseous lesion. Mild multilevel degenerative disc disease. Mild splaying of the fourth and fifth ribs on the right consistent with prior thoracotomy.? UPPER ABDOMEN: Status post cholecystectomy. Small hiatal hernia. Visualized upper abdominal viscera otherwise unremarkable.? No reflux of contrast into the hepatic veins to suggest elevated right heart pressures. CT/CT angio chest PE protocol IMPRESSION: 1.? No evidence of pulmonary embolus. 2.? No airspace consolidation or effusions. 3.? Moderate centrilobular emphysema. 4.? Status post right upper lobectomy. Interval development of irregular linear perifissural thickening along the upper right oblique fissure at the right lung apex since most recent prior. Would suggest follow-up CT in 3 months to assess stability. 5.? Unchanged existing small pulmonary nodules in the left lower lobe. ? VTE: negative <SALIMA Rivas - Last Filed: 12/14/22 16:40> Radiology Impression Discussion of test interpretation with radiology: I have reviewed the radiologist's reading. <SALIMA Rivas - Last Filed: 12/14/22 16:40> External Record Review External record reviewed: Inpatient record, Office record, Outpatient record, Prior outpatient labs, Prior outpatient radiology, Primary care record and Outside ED record <SALIMA Rivas - Last Filed: 12/14/22 16:40> Critical Care Time Critical Care Time Critical Care Time: Yes <SALIMA Rivas - Last Filed: 12/14/22 16:40> Total Critical Care Time: 60 <SALIMA Rivas - Last Filed: 12/14/22 16:40> Attestation: I personally attest to this time spent taking care of the patient <SALIMA Rivas - Last Filed: 12/14/22 16:40> Discharge Plan Discharge Clinical Impression: Muscle strain of left lower leg, Emphysema lung, Abnormal chest CT, Pulmonary nodules <SALIMA Shaw - Last Filed: 12/14/22 11:54> Patient Disposition: Home, Self-Care <SALIMA Shaw - Last Filed: 12/14/22 11:54> Instructions: Emphysema (ED), Musculoskeletal Pain (ED) <SALIMA Shaw - Last Filed: 12/14/22 11:54> Prescriptions: New cyclobenzaprine 10 mg tablet 10 mg PO Q8H Qty: 14 0RF No Action (DME) [facility] See Rx Instructions .ROUTE .COMPLEX Qty: 1 0RF Dose Instruction: DIRECTED Rx Instructions: DIRECTED ipratropium-albuterol 0.5 mg-3 mg(2.5 mg base)/3 mL solution for nebulization 3 ml inhalation BID 30 Days Qty: 180 11RF albuterol sulfate 90 mcg/actuation HFA aerosol inhaler 2 inh inhalation Q6H PRN (Reason: shortness of breath or wheezing) 30 Days Qty: 18 12RF budesonide-formoterol [Symbicort] 160-4.5 mcg/actuation HFA aerosol inhaler 2 puff inhalation BID Qty: 10.2 3RF sildenafil 100 mg tablet 100 mg PO montelukast 10 mg tablet 10 mg PO DAILY prednisone 20 mg tablet 20 mg PO BID azithromycin 250 mg tablet 250 mg PO DIRECTED Spiriva Respimat 2.5 mcg/actuation mist 2 puff inhalation DAILY 30 Days Qty: 1 6RF prednisone 10 mg tablet See Rx Instructions PO DAILY 18 Days Qty: 30 0RF Rx Instructions: PO daily; Take 4 tabs x 3 days, then 3 tabs x 3 days, then 2 tabs daily x 3 days, then 1 tab x 3 days to complete. (DME) nebulizers Misc See Rx Instructions .Route Rx Instructions: As directed <SALIMA Shaw - Last Filed: 12/14/22 11:54> Referrals: Mirza Humphreys MD [Physician] - Jhon Collins MD [Primary Care Provider] - <SALIMA Shaw - Last Filed: 12/14/22 11:54>
[2022-12-14 14:28] LABS: Hematocrit 48.9 % (42.0-52.0); Hemoglobin 16.3 g/dl (14.0-18.0); Mean Corpuscular HGB Conc 33.3 g/dl (31.0-36.0); Mean Corpuscular Hemoglobin 29.1 pg (27.0-33.0); Mean Corpuscular Volume 87.3 fL (80.0-98.0); Mean Platelet Volume 10.4 fL (9.4-12.4); Platelet Count 274 X10*3/uL (160-400); Red Cell Distribution Width 14.4 % (11.0-16.0)
[2022-12-14 14:51] LABS: B Type Natriuretic Peptide 32 pg/mL (<100)
[2022-12-14 14:58] LABS: INTERNATIONAL NORM RATIO 0.9 (0.9-1.1); Prothrombin Time 10.4 SEC (10.0-13.1)
[2022-12-14 15:00] LABS: Partial Thromboplastin Time 25.5 SEC (26.0-36.4)
[2022-12-14 15:02] LABS: Alanine Aminotransferase 51 U/L (0-40); Albumin Level 4.2 g/dL (3.5-5.0); Alkaline Phosphatase 73 U/L (39-117); Anion Gap 16 (12-20); Aspartate Amino Transferase 65 U/L (5-37); Bilirubin Total 0.3 mg/dL (0.0-1.0); Blood Urea Nitrogen 26 mg/dL (9-16); Calcium 9.7 mg/dL (8.4-10.2); Carbon Dioxide 24 mmol/L (22-29); Chloride 101 mmol/L (96-108); Creatinine Clr Calc Pharmacy 56.2; Estimated Glomerular Filt Rate 56; Glucose Random 182 mg/dL (60-115); Magnesium 2.1 mg/dL (1.6-2.6); Potassium 5.1 mmol/L (3.3-5.1); Sodium 136 mmol/L (135-145)
[2022-12-14 15:15] LABS: Band Neutrophils Percent 10 % (3-5); Lymphocytes Absolute Manual 1.7 X10*3/uL (1.2-4.9); Lymphocytes Percent Manual 11 % (20-40); Monocytes Absolute Manual 0.8 X10*3/uL (0.1-1.2); Monocytes Percent Manual 5 % (2-11); Neutrophils Absolute Manual 12.6 X10*3/uL (2.0-8.3); Neutrophils Percent Manual 74 % (45-73)
[2022-12-14 15:23] LABS: Burr Cells 1+ (0-2) /OIF; RBC Morphology NOTED; Schistocytes 1+ (0-2) /OIF
[2022-12-14 15:24] LABS: Platelet Estimate NORMAL (NORMAL); Platelet Morphology Comment NORMAL; Tear Drop Cells 1+ (0-2) /OIF
[2022-12-14] MEDS: iohexoL 350 MG/ML 100 ML INFUS..BTL IV (15:32)
[2022-12-14 15:49] VITALS: BP 151/101; PULSE 66; RESP 16; TEMP 36.8; O2SAT 95
--- NOTE | 2022-12-14 15:50 | MHC.EDTECH ---
THIS PCT ASSUMED CARE OF PT AT 1500 ,VITALS SIGN TAKEN ,PATIENT IS RESTING IN BED .
== END 2022-12-14 16:58 | disposition home or self-care (01) ==
PROVIDERS: Physician Assistant Medical; Emergency Provider Emergency Medicine; PCP Internal Medicine
DX: M79.662 Pain in left lower leg (principal); R60.0 Localized edema; J43.0 Unilateral pulmonary emphysema [MacLeod's syndrome]; M79.605 Pain in left leg; M54.50 Low back pain, unspecified; R06.02 Shortness of breath; Z79.899 Other long term (current) drug therapy; Z87.891 Personal history of nicotine dependence
CPT/HCPCS: 36415; 71046; 71275; 80053; 83735; 83880; 85007; 85027; 85610; 85730; 93971; 99283; 99284; Q9967

== ENCOUNTER → 2022-12-24 07:48 | Outpatient (BNVA) | payer BC, SELFPAY | PROVIDERS: PCP Internal Medicine; Visit Provider Psychiatry & Neurology Neurology | DX: G62.9 Polyneuropathy, unspecified (principal) ==

== ENCOUNTER → 2023-01-07 08:56 | Outpatient (REF) | payer BC, SELFPAY | LOC: HO.SL 08:56 | PROVIDERS: Visit Provider Psychiatry & Neurology Neurology | DX: G47.33 Obstructive sleep apnea (adult) (pediatric) (principal); G47.10 Hypersomnia, unspecified; R06.83 Snoring | CPT/HCPCS: 95806 ==

== ENCOUNTER 2023-01-11 07:08 | Outpatient (REF) | payer BC, SELFPAY ==
--- NOTE | ~2023-01-11 | MR_ITS ---
EXAMINATION: MR LUMBAR SPINE WITHOUT CONTRAST CLINICAL INFORMATION: Left leg pain. COMPARISON: None. TECHNIQUE: Multiplanar, multisequence imaging was obtained. FINDINGS: VERTEBRAL BODIES AND PARASPINAL STRUCTURES: The marrow signal is fairly homogeneous. There are mild edematous endplate changes at the L4-L5 and L5-S1 levels with a mild leftward curvature centered at L4-L5. No compression fractures identified. There is a slight posterior subluxation at the L3-L4 level. The paraspinal soft tissues appear normal. Multiple renal cysts are present bilaterally, the largest in the right kidney measuring up to 8 cm in transverse dimension, for which no further imaging follow-up is indicated. There are [id number] degenerative changes of the sacroiliac joints. CONUS MEDULLARIS AND CAUDA EQUINE: The distal cord, conus tip, and cauda equina nerve roots are normal. SPINAL LEVELS: L1-L2: No disc pathology, central canal stenosis, or foraminal narrowing. L2-L3: Very mild disc bulge and mild facet arthropathy without central canal stenosis and very mild foraminal encroachment. Shallow left posterolateral disc protrusion also noted. L3-L4: Uhgy-dn-[id number] loss of disc height and retrosubluxation with a broad-based posterior disc bulge impressing upon the ventral thecal sac and contacting the traversing L4 nerve roots. Mild facet arthropathy and mild central canal stenosis with mild bilateral foraminal narrowing. L4-L5: Severe loss of disc height and broad-based disc bulge with a small central disc protrusion and hypertrophic facet arthropathy result in [id number]-[id number] central canal stenosis. Bulging disc impresses upon the right L5 nerve root in the subarticular zone. Mild left and moderate right foraminal narrowing. L5-S1: Diffuse disc bulge and mild retrosubluxation with a small central protrusion and hypertrophic facet arthropathy. No central canal stenosis. Mild right foraminal narrowing. Endplate spurring impinges upon the exiting left L5 nerve root with moderate left foraminal encroachment. MR/MR lumbar spine wo con IMPRESSION: 1. Mild leftward lumbar spinal curvature and multilevel spondylitic changes. No compression fractures. 2. Broad-based posterior disc bulge at the L3-L4 level contacting the traversing L4 nerve roots. Mild central canal stenosis and foraminal narrowing. 3. Severe loss of disc height and disc bulge with a small central disc protrusion at the L4-L5 level. Zdvz-gt-dgdhlkpf central canal stenosis and bulging disc impressing upon the right L5 nerve root. Moderate right foraminal narrowing. 4. Small central disc protrusion and mild retrosubluxation at the L5-S1 level. Endplate spurring impinges upon the left L5 nerve root with [id number] left foraminal encroachment.
== END 2023-01-11 07:09 | disposition home or self-care (01) ==
LOC: HO.MRI 07:08
PROVIDERS: Visit Provider Psychiatry & Neurology Neurology
DX: M79.605 Pain in left leg (principal); M54.9 Dorsalgia, unspecified
CPT/HCPCS: 72148

== ENCOUNTER → 2023-01-12 09:32 | Outpatient (BNVA) | payer BC, SELFPAY | PROVIDERS: PCP Internal Medicine; Visit Provider Hospitalist | DX: Z13.89 Encounter for screening for other disorder (principal) ==

== ENCOUNTER → 2023-01-24 19:30 | Outpatient (REF) | payer BC, SELFPAY | LOC: HO.SL 19:30 | PROVIDERS: PCP Internal Medicine; Visit Provider Nurse Practitioner Family | DX: G47.33 Obstructive sleep apnea (adult) (pediatric) (principal) | CPT/HCPCS: 95811 ==

== ENCOUNTER → 2023-02-10 08:47 | Outpatient (BNVA) | payer BC, SELFPAY | PROVIDERS: PCP Internal Medicine; Visit Provider Psychiatry & Neurology Neurology | DX: M79.605 Pain in left leg (principal); M54.9 Dorsalgia, unspecified; R06.83 Snoring; G47.10 Hypersomnia, unspecified ==

== ENCOUNTER → 2023-03-23 10:47 | Outpatient (BNVA) | payer BC, SELFPAY | PROVIDERS: PCP Internal Medicine; Visit Provider Psychiatry & Neurology Neurology ==

== ENCOUNTER → 2023-04-06 09:20 | Outpatient (BNVA) | payer BC, SELFPAY | PROVIDERS: PCP Internal Medicine; Visit Provider Hospitalist | DX: J45.909 Unspecified asthma, uncomplicated (principal); R74.01 Elevation of levels of liver transaminase levels ==

== ENCOUNTER 2023-07-06 10:41 | Outpatient (AMB) | payer BC, SELFPAY ==
[2023-07-06 10:49] VITALS: BP 100/78; PULSE 82; O2SAT 97; BMI 26.6
--- NOTE | 2023-07-06 10:49 | A.OFFVIS_ITS ---
Intake Vital Signs 07/06/23 10:49 Height 5 ft 8 in Weight 175 lb BMI 26.6 BP 100/78 Blood Pressure Location Rt brachial Position Sitting Pulse 82 Pulse Source Pulse Oximeter Pulse Oximetry (%) 97 Oxygen Delivery Method Room Air Intake Visit Reasons: Follow up(talk about inspire) - Confirmed Intake Note: Patient presents for follow up. Allergies No Known Allergies Allergy (Verified 07/06/23 10:51) Medication List - Last Reconciled 07/06/23 by Naomy Hammond MD aspirin 81 mg PO DAILY atorvastatin 80 mg PO DAILY dapagliflozin propanediol (Farxiga) 5 mg PO DAILY famotidine 20 mg PO BID lisinopril 2.5 mg PO DAILY peg 400-propylene glycol (PF) 0.4-0.3 % (Systane Ultra (PF)) 1 drp ophthalmic (eye) BID-QID PRN Spiriva Respimat 2.5 mcg/actuation (tiotropium bromide) 2 puffs inhalation DAILY NS Symbicort 160-4.5 mcg/actuation (budesonide-formoterol) 2 puffs inhalation BID 90 days NS trazodone 50 mg PO BEDTIME HPI HPI Comments History of Present Illness Details 63y/o male with sleep apnea, CVA comes for follow up.He has severe sleep apnea AHI 31/hr and oxygen andir 76%. He is on CPAP at 12 cm of water- he has difficulty tolerating the CPAP . Dr. Fidel Radofrd- neurovascular specialist at [facility] -for subacute infarcts in [place] basal ganglia seen on MRI. I reviewed his notes and he suggested to co ntinue aspiirn 81mg qd atorvostatin 80mg qd for goal LDL of less than 70. He is OFF clopidogrel now and was not recommended to restart . clinically he is stable on speech therapy. [facility] Medical History Aortic aneurysm Back pain Cerebrovascular disease COPD (chronic obstructive pulmonary disease) Glaucoma Left leg pain Lung cancer DREW on CPAP Peripheral neuropathy Pulmonary nodules Snoring Transaminitis Surgical History H/O hernia repair H/O shoulder surgery History of colon surgery History of lung surgery Social History Alcohol intake: never Patient Tobacco Use Status: Former Tobacco user Tobacco use type: Cigarette Years Smoked: 25 Years Physical Exam Vital Signs: Last Vital Signs Pulse 82 07/06/23 10:49 BP 100/78 07/06/23 10:49 Pulse Ox 97 07/06/23 10:49 Oxygen Delivery Method Room Air 07/06/23 10:49 BMI result Body Mass Index 26.6 Const General: cooperative and anxious Nutritional Appearance: average body habitus Orientation/consciousness: patient oriented x3 Limitations: no limitations HEENT Head: Yes normal to inspection and Yes normocephalic Eyes Pupils: Equal, round and reactive pupils present Neck Neck: Yes normal visual inspection and Yes full ROM Neuro General: patient oriented x3, tone normal, moves all extremities and no focal motor deficits Cranial nerves: Yes Facial sensation intact/muscles of mastication intact, Yes Equal, round and reactive pupils present, Yes Bilaterally intact EOM present, Yes Nystagmus not present, Yes Normal facial strength present, Yes Midline tongue present, Yes Symmetric palate elevation present and Yes Ability to bilaterally elevate shoulders present Cognition (Neuro): normal cognition Gait exam (Neuro): Normal gait present Motor exam (neuro): 5/5 motor strength present throughout and Normal motor muscle tone present throughout Coordination: [id number] test normal Assessment & Plan Assessment & Plan (1) Obstructive sleep apnea: Comment: severe degree of sleep apnea. The AHI was 31/hr and oxygen hayder was 76%. Code(s): G47.33 - Obstructive sleep apnea (adult) (pediatric) (2) Cerebrovascular disease: Code(s): I67.9 - Cerebrovascular disease, unspecified Plan I suggested he follow up with Dr. Radford for his CVD. Continue aspirin 81mg qd, atorvostatin 80mg qd GOAL LDL <70 Continue CPAP - compliance stressed. I will refer him to Dr. Mccabe to evaluate for INSPIRE treatment . Will consider referring to Dr. Rodriguez if he develops increased radicular symptoms or signs of spinal stenosis. Orders: Referrals Speech and Hearing Referral I67.9 - Cerebrovascular disease, unspecified Ear/Nose/Throat Referral G47.33 - Obstructive sleep apnea (adult) (pediatric) Coding Level of Care Code Est Pt Level 4 (39901) Diagnoses Obstructive sleep apnea G47.33 Cerebrovascular disease I67.9
== END 2023-07-06 11:32 | disposition home or self-care (01) ==
PROVIDERS: PCP Internal Medicine; Visit Provider Psychiatry & Neurology Neurology
DX: G47.33 Obstructive sleep apnea (adult) (pediatric) (principal); I67.9 Cerebrovascular disease, unspecified
CPT/HCPCS: 99214

== ENCOUNTER → 2023-07-06 10:41 | Outpatient (BNVA) | payer BC, SELFPAY | PROVIDERS: PCP Internal Medicine; Visit Provider Psychiatry & Neurology Neurology ==

== ENCOUNTER 2023-09-07 09:52 | Outpatient (RCR) | payer BC, SELFPAY ==
--- NOTE | 2023-09-13 16:25 | MHC.SP.ADU ---
Referring provider: Naomy Hammond MD Reason for Referral: Hx stroke Type of Treatment: 05272 Standardized Cognitive Performance Testing, per hour Date of Plan of Treatment: 09/07/23 Onset of Symptoms/Illness: 03/08/23 Date Treatment Started: 09/07/23 Medical Diagnosis: I67.9 Cerebrovascular disease, unspecified R47.9 Unspecified speech disturbances Primary Speech Language Diagnosis: R41.841 Cognitive communication disorder Secondary Speech Language Diagnosis: R47.01 Aphasia History Background information in this report is obtained from review of electronic medical record and patient interview. Mr. Navarro is a 63 year old male referred for a speech-language evaluation by Naomy Hammond MD of [facility] in [place], [place]. Mr. Urena reports having completed some high school. He is not currently employed and lives in a private residence. Mr. Navarro personally reports history of arthritis, asthma, cancer, and stroke. Mr. Navarro reports he had awoken one morning this past February or March when his noticed he was slurring his words. He was then hospitalized at [facility] for three days for further evaluation and treatment of a stroke. Dr. Hammond?s notes indicate Mr. Navarro sees a neurovascular specialist at [facility] for subacute infarcts in [place] basal ganglia seen on MRI. Mr. Navarro reported he had worked with a stroke specialist and a physical therapist after his discharge from the hospital. Upon further interview, he recalled working on finding words and memory, but does not recall whether or not this was with a speech pathologist. Mr. Navarro shared he had attended a stroke group meeting, but decided this ?wasn?t for [him].? He is here for evaluation of his language and cognition as he reported sometimes experiencing difficulties with expressing thoughts, memory, problem solving, focusing, reading, writing, and finding words. He expressed, ?My memory feels kind of sketchy sometimes.? Medical History: Other: Medical History Aortic aneurysm Back pain Cerebrovascular disease COPD (chronic obstructive pulmonary disease) Glaucoma Left leg pain Lung cancer DREW on CPAP Peripheral neuropathy Pulmonary nodules Snoring Transaminitis Surgical History H/O hernia repair H/O shoulder surgery History of colon surgery History of lung surgery Medication List: Recent Hospitalizations: Respiratory Needs: Patient Orientation: Alert & Oriented x 4 Reported Speech, Language, Cognition difficulties: Attention Memory Cognition Speaking Problem Solving Assessment Tests of Speech & Lang Adults: BDAE BNT Clinical Impression: Impaired Observations: Mr. Navarro completed the [place] Naming Test (BNT) Short Form. He was presented with images, which he was instructed to name in a confrontation naming task. Mr. Navarro correctly named 11 out of 15 images independently. Patient was able to name common nouns, but exhibited some difficulty naming less salient items. He was observed to name items using descriptive phrases (i.e. ?paint tray? for target word ?palette?). Mr. Navarro was able to select the correct label in 4 out of 4 trials when provided with a choice of 4 written words. 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 He is observed to utilize compensatory strategies and self-cues to eventually retrieve words on his own and/or to continue the communication exchange. Mr. Navarro was also administered the Auditory Comprehension, Oral Expression, Reading and Writing subtests of the Wingate Diagnostic Aphasia Examination. His performance is summarized below: RECEPTIVE LANGUAGE: -Patient was instructed to identify spoken words by pointing to his response. Patient identified body parts on himself, and line images from an array of 4 correctly in 16 out of 16 trials. Responses after a short time delay (>5 sec) were scored with 1/2 point while immediate responses (<5 sec) were scored with 1 point. Patient received a score of 16/16 on this portion. -Patient followed multistep and complex directions verbally presented to him in 3 out of 3 trials. Patient was presented with a verbal direction. Each element of the direction carried out was scored with 1 point. Patient received a score of 10 out of 10 on this task. -Patient correctly answered yes/no questions about ideational material in 4 out of 4 trials and about short stories read aloud for him in 7 out of 8 trials. Questions were presented in pairs (6 pairs), each pair consisting of a yes-item and a no-item. In order to gain 1 point, patient was to answer both questions correctly. Patient received a score of 5/6. EXPRESSIVE LANGUAGE: -Patient generated the days of the week and counted to 21 without difficulty, receiving a score of 4/4. Pt reported no difficulties with automatic speech tasks. -Patient repeated single words in 5 out of 5 trials and complete sentences in 2 out of 2 trials. Pt exhibited no difficulty with repetition. -Patient responded appropriately to responsive naming questions (i.e. ?What do you use to shave??) in 5 out of 5 trials. Items immediately named were scored as 2 points and items named after a short time delay (>5 sec) were scored as 1 point. Patient named 5 items immediately, receiving a score of 10/10. -Patient correctly named ?special categories,? which included letters, numbers, and colors in 11 out of 12 trials. READING: -Patient was able to match letters across cases and scripts, demonstrating basic symbol recognition and receiving a score of 4/4 on this task. -Patient was able to match numbers to fingers and dot patterns, receiving a score of 4/4 on this task. -Patient matched pictures to written words, demonstrating intact word identification. Patient received a score of 4/4 on this task. -Patient read aloud single words without difficulty. Patient read aloud single words within 0-3 seconds, demonstrating basic oral word reading- 15/15 score -Patient read aloud sentences correctly in 5 out of 5 trials. Patient answered comprehension questions correctly after a short time delay- 2/3 correct -Patient read aloud sentences and paragraphs and selected the completion from a choice of 4 without assistance- 4/4 correct WRITING: -Patient was able to print and sign his name -Patient correctly wrote dictated letters and numbers. -Patient was able to write numbers 1-10 -Patient wrote primer words (i.e. cat; run; go; dog), words with regular phonics (i.e. apartment), and common irregular forms (i.e. cough, knife, nation). Patient received a scores of 4/4 when writing primer words, 2/2 when writing words targeting regular phonics, 3/3 when writing common irregular forms. -Well-formedness of letters scored as 14/14. Letters were all well-formed. Correctness of letter choice scored as 21/21. No evident impairments in motor facility of writing, scored as 14/14. Tests of Cognition: RBANS Clinical Impression: Impaired Observations: Additionally, Mr. Navarro?s cognitive linguistic skills were evaluated using the RBANS: The Repeatable Battery for the Assessment of Neuropsychological Status (RBANS-Updated Form A). The RBANS assesses aspects of cognitive memory, language, and attention skills. The RBANS is considered a screening battery for cognitive function used with adolescents and adults, ages 12 to 89 years. Composite domains assessed in this evaluation are: Immediate Memory, Visuospatial/Constructional, Language, Attention, and Delayed Memory. Assessed domains and their scores are summarized below: IMMEDIATE MEMORY: These subtests assess an individual?s ability to remember a small amount of information immediately after it is presented. Mr. Navarro was presented with a list of 10 spoken words and was instructed to repeat back as many words as he could remember from the list (List Learning). He initially recalled 4 items from the list of 10. After 3 repetitions, he recalled up to 5-6 items on the list, indicating that verbal repetition seems to facilitate his recall. After listening to a spoken paragraph, Mr. Navarro was instructed to re-tell the story with as many details as he could remember (Story memory). He recalled 2 specific details from the story. After listening to the story another time, he was able to recall 2 additional details. List Learning Total Score: 19 Scaled Score: 4 Interpretation: Borderline Story Memory Total Score: 6 Scaled Score: 2 Interpretation: Extremely Low Immediate Memory Index score: 57 Interpretation: Extremely Low VISUOSPATIAL/CONSTRUCTIONAL: These subtests assess an individual?s visuospatial skills and perception of spatial relationships. Mr. Navarro was instructed to draw an accurate copy of a figure presented to him (Figure Copy). Mr. Navarro included most components in his copy with accurate placement. His drawing lacked just one detail from the original copy. Mr. Navarro was able to identify lines that matched based on orientation and placement in most trials (Line Orientation). Visuo-spatial skills are a relative strength for him. Figure Copy Total Score: 19 Scaled Score: 11 Interpretation: Average Line Orientation Total Score: 17 Percentile Group: 51-75 Interpretation: Average Visuospatial/Constructional Index score: 102 Interpretation: Average LANGUAGE: These subtest assess an individual?s word retrieval skills. Mr. Navarro correctly named line images in 9 out of 10 trials (Picture Naming). He was also instructed to name as many fruits and vegetables as he can in 60 seconds (Semantic Fluency). Pt named 14 items. Picture Naming Total Score: 9 Percentile Group: 17-25 Interpretation: Low Average Semantic Fluency Total Score: 14 Scaled Score: 5 Interpretation: Borderline Language Index score: 87 Interpretation: Low Average ATTENTION: These subtests assess an individual?s capacity to remember and manipulate both visually and orally presented information in short-term memory storage. Mr. Navarro was first instructed to repeat back number series that were between 2-9 digits long (Digit Span). He recalled digit series of up to 6 digits. Mr. Navarro was also instructed to code markings with numbers (Coding). He coded 30 markers, making errors on several symbols which were similar, but differed in their orientation or placement. Digit Span Total Score: 10 Scaled Score: 10 Interpretation: Average Coding Total Score: 27 Scaled Score: 4 Interpretation: Borderline Attention Index score: 82 Interpretation: Low Average DELAYED MEMORY: These subtests assess an individual?s retrieval of information from long-term memory. Mr. Navarro exhibited difficulty recalling information that was presented to him at the beginning of the testing period. He stated, ?I don?t think I can do this.? He did recall 4 items on the list presented at the beginning of our session (List Recall), but was unable to recall any details from the story that had been previously told (Story Recall). Mr. Navarro expressed, ?I can?t remember stuff like this, like grocery lists.? Mr. Navarro was then asked to recognize items by indicating whether or not a given word was on that list (List Recognition). He indicated 18/20 words which were on the list, stating, ?I?m guessing now.? He demonstrated strengths in his visual memory, as he re-cleopatra the figure with mostly correct placement and some missing components (Figure Recall). List Recall Total Score: 4 Percentile Group: 26-50 Interpretation: Average List Recognition Total Score: 18 Percentile Group: 10-16 Interpretation: Low Average Story Recall Total Score: 0 Scaled Score: 1 Interpretation: Extremely Low Figure Recall Total Score: 13 Scaled Score: 10 Interpretation: Average Delayed Memory Index score: 78 Interpretation: Borderline Sum of Index Scores: 406 Total Scale Score: 77 Percentile: 6% Misa Kilpatrick (1998). Repeatable Battery for the Assessment of Neuropsychological Status [Manual]. HENRI Perry: Jseus. Recommendation for Speech Therapy: Outpatient Speech Therapy Pt presents with a mild cognitive linguistic impairment, with anomia and difficulties in short-term memory. Based on pt?s performance on RBANS and BDAE, the following areas of weakness were identified as treatment targets: story memory at the paragraph level, immediate auditory recall (digits, addresses), delayed memory, and word finding. Pt would benefit from outpatient treatment once weekly x 12 sessions to work on the following goals: Frequency/Duration: 1x weekly x 12 weeks Date Range for Service Requested: Time to Reassess: 3 months Assisted Goals: 1.) Mr. Navarro will utilize a variety of word-finding strategies at the conversational level with minimal assistance in >80% opportunities presented to him. 2.) Mr. Navarro will utilize compensatory strategies to assist (immediate and delayed) short-term memory in 80% of opportunities independently. Short Term Goals: Goal # : 1.1.Mr. Navarro will identify a target word when provided with 3-4 related words or phrases in a word deduction task with 80% accuracy and minimal verbal assistance. 1.2.Mr. Navarro will utilize Semantic Feature cues (i.e. category, use, function, physical components, association, location) to describe items to a listener successfully in 80% of opportunities with visual support (chart). 1.3. Mr. Navarro will employ circumlocution as a strategy to facilitate word retrieval in conversation in 4 out of 5 opportunities with occasional verbal cues (leading questions, reminders to utilize semantic feature analysis technique). Goal Status: New Goal Goal# : 2.1.Mr. Navarro will demonstrate increased ability to independently copy relevant details (i.e. character names, time lines, main ideas) with 80% accuracy from a highlighted reading source (i.e. news articles, journal, story) after listening to an oral presentation when provided with minimal verbal reminders. 2.2. Mr. Navarro will answer auditory comprehension questions about functional paragraphs/narratives with 80% accuracy when provided with minimal cues across three sessions. Goal Status: New Goal Goal # : 2.3. Mr. Navarro will recall a series of 5-6 digits/words verbally presented to him with 80% accuracy and minimal assistance. 2.4. Mr. Navarro will recite 4 word lists presented to him verbally in reverse order with 80% accuracy and 1-2 repetitions. Goal Status: New Goal Goal # : 2.5. Mr. Navarro will recall addresses (including house number, street, city, state) verbally presented to him by the clinician with >80% accuracy and moderate assistance. 2.6. Mr. Navarro will recognize pictures and words after studying a list of words and illustrations for 20 seconds. He will recognize 80% of targeted pictures/words when provided with minimal cues across three sessions. Goal Status: New Goal Recommended Referrals to be Discussed with Primary Care Provider: Neurology Patient Education: Completed: Yes Patient/Caregiver Education: Described Results of Evaluation Patient expressed understanding of evaluation Patient agrees with goals and treatment plan Comments/Barriers to Learning: [employer] Officer Clinican/Clinical Fellow: No Supervisory Statement: N/A Speech Language Pathologist: Rabia Burch M.A., CCC-TOY MECHANIC
== END 2023-09-14 10:16 | disposition still patient (30) ==
LOC: HO.SH 09:52
PROVIDERS: Visit Provider Psychiatry & Neurology Neurology
DX: I67.9 Cerebrovascular disease, unspecified (principal); R47.9 Unspecified speech disturbances
CPT/HCPCS: 96125

== ENCOUNTER 2023-10-05 09:03 | Outpatient (AMB) | payer BC, SELFPAY ==
[2023-10-05 09:38] VITALS: BP 110/70; PULSE 65; O2SAT 94; BMI 26.6
--- NOTE | 2023-10-05 09:38 | A.OFFVIS_ITS ---
Intake Vital Signs 10/05/23 09:38 Height 5 ft 7 in Weight 170 lb BMI 26.6 BP 110/70 Blood Pressure Location Lt brachial Position Sitting Pulse 65 Pulse Source Pulse Oximeter Pulse Oximetry (%) 94 Oxygen Delivery Method Room Air Intake Visit Reasons: COPD Cleaning Supervisor Required: No Allergies No Known Allergies Allergy (Verified 10/05/23 09:41) HPI HPI Comments History of Present Illness Details The patient is a 63-year-old gentleman with a known history of COPD in addition to lung cancer. The patient was evaluated back in 2007 for concerning pulmonary nodule and underwent a lobectomy with curative intent. The patient did not need any chemotherapy afterwards. He did have multiple pulmonary nodules there follow closely until 2019. His biggest nodule measuring 7 mm in size in the left lower lobe. In addition to that the patient did have some postoperative changes. Overall he is doing well. He has been stable on the Symbicort and Spiriva. However, he was evaluated by ophthalmology and found to have narrow angle glaucoma. Therefore he was taken off the Spiriva and also requested to come off the Symbicort as well. He is scheduled to undergo surgical intervention for the glaucoma in the coming weeks. Afterwards he is able to go back on the Symbicort. The patient does have some wheezing on examination. I did recommend that if he has worsening wheezing and we could also just place him on inhaled corticosteroids that would ease his respiratory symptoms nathan waiting for his surgery. But, he rather not taking inhalers just in case they would interfere with surgery. In the meantime the patient can use short-acting beta agonist once or twice a day in order to help with his underlying respiratory symptoms. In regards to his pulmonary nodules last CT scan of the chest was back in 2019. I personally reviewed the CT scan with him. It appears that he does have also an ascending aortic aneurysm measuring 4.2 cm in size. In view of the aneurysm and also the pulmonary nodules that had not been followed for more than 2 years it is reasonable to perform a CT chest with contrast to assess the aortic aneurysm and also assess for the pulmonary nodules, specially the 7 mm nodule in the left lower lobe. The patient continues to have some dyspnea on exertion [id number] severity. He continues to work though and he stays active as much as possible. I am hopeful that once he goes back in his respiratory therapy he will do better. the patient is also on CPAP therapy for obstructive sleep apnea. He has been on CPAP therapy now for many years. He tolerates it well. The therapy has been affecting beneficial. He does get supplies regularly. I did request that he bring machine and for his next visit so we can assess it and adjusted accordingly. 12/06/2022 the patient is here for pulmon lorna sick visit. Apparently in this October the patient developed the flu. Subsequently after that started developing worsening chest tightness and wheezing. He then a 2nd course of prednisone. In addition to that he is also on a azithromycin. still complained of significant chest tightness and wheezing. Moderate severity. He has been using his nebulizer several times a day. Denies any fevers or chills. He did undergo a chest x-ray without any acute airspace disease. He also had a CT scan sometime in September 2022 demonstrating stable postoperative changes. He does have his CPAP although it has been difficult for him to use her why been sick. Hopefully can go back to using it regularly once he is feeling better. He is wondering if he could have a potential trigger for her respiratory status. Will have him undergo blood work to assess his neurological status and also to assess any allergy triggers. I did recommend he had blood work at least 1 week after completing the prednisone so it does not affect the results as much. In addition to that the patient has been having issues with neuropathy of the lower extremities. He will talk to his primary care further. He is looking for a neurologist. 01/12/2023 the patient is here for a pulmonary follow-up visit. He is feeling better from a respiratory status. He has been using his respiratory inhalers as prescribed. From all the coughing started developing some periumbilical discomfort. He felt a little fullness. 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 Now he is requiring surgery. At least now from a respiratory status the patient is doing better. Will go ahead and add singular to further optimize his respiratory therapy. The patient does have increased risk for perioperative pulmonary complications which include; atelectasis, hypoxia, bronchospasms and pneumonia. At this point the patient is medically optimized and may proceed with surgery. If he develops any worsening symptoms he is to call the office prior to his surgery. The patient has been trying to use CPAP. However, his mask is very uncomfortable. I did have a different mask for him that he could try, N20 medium. hopefully this mass does not irritate some itchy scalp like his other mask. If this mask works for him he will let me know so I can order 1 to his DME company,[employer]. Also personally reviewed his CT chest, with an area of density adjacent to his lobectomy. Will plan to repeat CT chest in 4-6 months to assess for reoccurrence. 04/06/2023 the patient is here for a pulm onary follow-up visit. Since we last spoke the patient was in the hospital after developing a CVA. The patient did have slurred speech. Denies any focal weakness or sensory loss. He had changes in his mood. The patient did go to [facility] where he did extensive testing. He is also following closely with Neurology. Apparently the time frame did not qualify him for tPA. The patient was placed on aspirin Plavix. Now he is only taking aspirin. She understands that he needs to uses CPAP to decrease his risk for cerebrovascular disease. He still struggles with. Although he does use more than 4 hours a night. In addition to that, he continues uses respiratory therapy. Seems to be working better for him. He is should be scheduled for CT scan in April but will push it out to May since he has a planned trip to [place]. 10/05/2023 the patient is here for a pulmonary follow-up visit. The patient overall is feeling better. He is recovering from the stroke. Still has some residual symptoms but minimal. The patient is still struggling with CPAP. He is trying to use it. Although under current settings is AHI still elevated at 10. he struggles with the CPAP set up. The patient did contemplate on the hypoglossal nerve stimulator. Although he is concerned. He also has a oral mandibular advancement device. The patient does try to use it as well. Again, he does use the CPAP more than 4 hours and even on high pressure settings the patient is still having significant elevation is in his AHI. In view of his recent stroke increased risk for cardiovascular and cerebrovascular disease he is failed CPAP and I will request he be exchanged to a BiPAP. The BiPAP will be more effective although will have to titrate the pressures accordingly. [facility] Medical History (Updated 10/06/23 @ 20:28 by Mirza Humphreys MD) Speech disturbance Cerebrovascular disease Transaminitis Snoring Back pain Left leg pain Peripheral neuropathy Aortic aneurysm Lung cancer DREW on CPAP Glaucoma Pulmonary nodules COPD (chronic obstructive pulmonary disease) Surgical History H/O shoulder surgery H/O hernia repair History of colon surgery History of lung surgery Social History Alcohol intake: never Patient Tobacco Use Status: Former Tobacco user Tobacco use type: Cigarette Years Smoked: 25 Years Review of Systems Const Reports daytime sleepiness and Denies night sweats Eyes Denies blurry vision, Denies exophthalmos and Denies change in vision ENT Denies change in voice, Denies lip swelling, Denies mouth pain, Reports nasal congestion, Reports nasal discharge and Denies tongue swelling Card Denies chest pain and Reports dyspnea on exertion Resp Reports cough, Reports dyspnea on exertion and Denies wheezing GI Reports abdominal pain Musc Denies no additional complaints Neuro Reports as per HPI, Denies Neuro-related abnormal movements and Denies focal weakness Psych Denies no additional complaints Gurinder/Lymph Denies easy bleeding and Denies lymphadenopathy Aller/Immun Denies lip swelling, Denies tongue swelling and Denies wheezing Physical Exam Vital Signs: Last Vital Signs Pulse 65 10/05/23 09:38 BP 110/70 10/05/23 09:38 Pulse Ox 94 10/05/23 09:38 Oxygen Delivery Method Room Air 10/05/23 09:38 BMI result Body Mass Index 26.6 Neck Neck: Yes normal visual inspection, Yes full ROM and Yes no lymphadenopathy Chest Chest palpation & inspection: normal inspection of the chest Resp Auscultation: diminished lung sounds Cardio Rate: regular rate Rhythm: regular rhythm Heart sounds: S1 normal heart sound present and S2 normal heart sound present GI Palpation (GI): Soft to palpation and nontender Auscultation: normal bowel sounds Skin General skin exam: rashes and/or lesions noted Assessment & Plan Assessment & Plan (1) COPD (chronic obstructive pulmonary disease): Code(s): J44.9 - Chronic obstructive pulmonary disease, unspecified Qualifiers: COPD type: chronic bronchitis Chronic bronchitis type: mixed simple and mucopurulent Qualified Code(s): J41.8 - Mixed simple and mucopurulent chronic bronchitis (2) Pulmonary nodules: Code(s): R91.8 - Other nonspecific abnormal finding of lung field Plan: largest 7mm LLL nodule (3) DREW on CPAP: Code(s): G47.33 - Obstructive sleep apnea (adult) (pediatric); Z99.89 - Dependence on other enabling machines and devices (4) Aortic aneurysm: Code(s): I71.9 - Aortic aneurysm of unspecified site, without rupture Qualifiers: Aortic location: unspecified Presence of rupture: without rupture Qualified Code(s): I71.9 - Aortic aneurysm of unspecified site, without rupture (5) Lung cancer: Code(s): C34.90 - Malignant neoplasm of unspecified part of unspecified bronchus or lung Qualifiers: Laterality: unspecified laterality Lung location: unspecified part of lung Qualified Code(s): C34.90 - Malignant neoplasm of unspecified part of unspecified bronchus or lung Plan stop Symbicort start Wixela continue Spiriva, stop if any visual changes. Needs to have his eye pressures checked serially LOYD as needed APAP 9-13 ramp 6, N20 medium not effective with elevated AHI, failed CPAP, need BIPAP repeat CT chest 12/13 at [facility] F/U 4 months Medications: New fluticasone propion-salmeterol 250-50 mcg/dose (Wixela Inhub) 1 inh inhalation Q12H 30 days 60 ea 11RF Coding Level of Care Code Est Pt Level 4 (11439) Diagnoses Mixed simple and mucopurulent chronic bronchitis J41.8 COPD type: chronic bronchitis Chronic bronchitis type: mixed simple and mucopurulent Pulmonary nodules R91.8 DREW on CPAP G47.33; Z99.89 Aortic aneurysm without rupture, unspecified portion of aorta I71.9 Aortic location: unspecified Presence of rupture: without rupture Malignant neoplasm of lung, unspecified laterality, unspecified part of lung C34.90 Laterality: unspecified laterality Lung location: unspecified part of lung Time Spent (min) 17
== END 2023-10-05 09:59 | disposition home or self-care (01) ==
PROVIDERS: PCP Internal Medicine; Visit Provider Hospitalist
DX: J41.8 Mixed simple and mucopurulent chronic bronchitis (principal); R91.8 Other nonspecific abnormal finding of lung field; G47.33 Obstructive sleep apnea (adult) (pediatric); Z99.89 Dependence on other enabling machines and devices; I71.9 Aortic aneurysm of unspecified site, without rupture; C34.90 Malignant neoplasm of unspecified part of unspecified bronchus or lung
CPT/HCPCS: 99214

== ENCOUNTER → 2023-10-05 09:03 | Outpatient (BNVA) | payer BC, SELFPAY | PROVIDERS: PCP Internal Medicine; Visit Provider Hospitalist ==

== ENCOUNTER 2023-12-20 11:00 | Outpatient (RCR) | payer BC, SELFPAY | END 2024-01-12 09:29 | disposition home or self-care (01) | LOC: HO.SH 11:00 | PROVIDERS: Visit Provider Psychiatry & Neurology Neurology | DX: I67.9 Cerebrovascular disease, unspecified (principal); R47.9 Unspecified speech disturbances | CPT/HCPCS: 92507 ==

== ENCOUNTER 2024-02-08 09:27 | Outpatient (AMB) | payer BC, SELFPAY ==
--- NOTE | 2024-02-08 10:18 | A.OFFVIS_ITS ---
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 The patient was evaluated back in 2007 for concerning pulmonary nodule and underwent a lobectomy with curative intent. The patient did not need any chemotherapy afterwards. He did have multiple pulmonary nodules there follow closely until 2019. His biggest nodule measuring 7 mm in size in the left lower lobe. In addition to that the patient did have some postoperative changes. Overall he is doing well. He has been stable on the Symbicort and Spiriva. However, he was evaluated by ophthalmology and found to have narrow angle glaucoma. Therefore he was taken off the Spiriva and also requested to come off the Symbicort as well. He is scheduled to undergo surgical intervention for the glaucoma in the coming weeks. Afterwards he is able to go back on the Symbicort. The patient does have some wheezing on examination. I did recommend that if he has worsening wheezing and we could also just place him on inhaled corticosteroids that would ease his respiratory symptoms nathan waiting for his surgery. But, he rather not taking inhalers just in case they would interfere with surgery. In the meantime the patient can use short-acting beta agonist once or twice a day in order to help with his underlying respiratory symptoms. In regards to his pulmonary nodules last CT scan of the chest was back in 2019. I personally reviewed the CT scan with him. It appears that he does have also an ascending aortic aneurysm measuring 4.2 cm in size. In view of the aneurysm and also the pulmonary nodules that had not been followed for more than 2 years it is reasonable to perform a CT chest with contrast to assess the aortic aneurysm and also assess for the pulmonary nodules, specially the 7 mm nodule in the left lower lobe. The patient continues to have some dyspnea on exertion [id number] severity. He continues to work though and he stays active as much as possible. I am hopeful that once he goes back in his respiratory therapy he will do better. the patient is also on CPAP therapy for obstructive sleep apnea. He has been on CPAP therapy now for many years. He tolerates it well. The therapy has been affecting beneficial. He does get supplies regularly. I did request that he bring machine and for his next visit so we can assess it and adjusted accordingly. 12/06/2022 the patient is here for pulmon lorna sick visit. Apparently in this October the patient developed the flu. Subsequently after that started developing worsening chest tightness and wheezing. He then a 2nd course of prednisone. In addition to that he is also on a azithromycin. still complained of significant chest tightness and wheezing. Moderate severity. He has been using his nebulizer several times a day. Denies any fevers or chills. He did undergo a chest x-ray without any acute airspace disease. He also had a CT scan sometime in September 2022 demonstrating stable postoperative changes. He does have his CPAP although it has been difficult for him to use her why been sick. Hopefully can go back to using it regularly once he is feeling better. He is wondering if he could have a potential trigger for her respiratory status. Will have him undergo blood work to assess his neurological status and also to assess any allergy triggers. I did recommend he had blood work at least 1 week after completing the prednisone so it does not affect the results as much. In addition to that the patient has been having issues with neuropathy of the lower extremities. He will talk to his primary care further. He is looking for a neurologist. 01/12/2023 the patient is here for a pulmonary follow-up visit. He is feeling better from a respiratory status. He has been using his respiratory inhalers as prescribed. From all the coughing started developing some periumbilical discomfort. He felt a little fullness. 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 Now he is requiring surgery. At least now from a respiratory status the patient is doing better. Will go ahead and add singular to further optimize his respiratory therapy. The patient does have increased risk for perioperative pulmonary complications which include; atelectasis, hypoxia, bronchospasms and pneumonia. At this point the patient is medically optimized and may proceed with surgery. If he develops any worsening symptoms he is to call the office prior to his surgery. The patient has been trying to use CPAP. However, his mask is very uncomfortable. I did have a different mask for him that he could try, N20 medium. hopefully this mass does not irritate some itchy scalp like his other mask. If this mask works for him he will let me know so I can order 1 to his DME company,[employer]. Also personally reviewed his CT chest, with an area of density adjacent to his lobectomy. Will plan to repeat CT chest in 4-6 months to assess for reoccurrence. 04/06/2023 the patient is here for a pulm onary follow-up visit. Since we last spoke the patient was in the hospital after developing a CVA. The patient did have slurred speech. Denies any focal weakness or sensory loss. He had changes in his mood. The patient did go to [facility] where he did extensive testing. He is also following closely with Neurology. Apparently the time frame did not qualify him for tPA. The patient was placed on aspirin Plavix. Now he is only taking aspirin. She understands that he needs to uses CPAP to decrease his risk for cerebrovascular disease. He still struggles with. Although he does use more than 4 hours a night. In addition to that, he continues uses respiratory therapy. Seems to be working better for him. He is should be scheduled for CT scan in April but will push it out to May since he has a planned trip to [place]. 10/05/2023 the patient is here for a pulmonary follow-up visit. The patient overall is feeling better. He is recovering from the stroke. Still has some residual symptoms but minimal. The patient is still struggling with CPAP. He is trying to use it. Although under current settings is AHI still elevated at 10. he struggles with the CPAP set up. The patient did contemplate on the hypoglossal nerve stimulator. Although he is concerned. He also has a oral mandibular advancement device. The patient does try to use it as well. Again, he does use the CPAP more than 4 hours and even on high pressure settings the patient is still having significant elevation is in his AHI. In view of his recent stroke increased risk for cardiovascular and cerebrovascular disease he is failed CPAP and I will request he be exchanged to a BiPAP. The BiPAP will be more effective although will have to titrate the pressures accordingly. 02/08/2024 the patient is here for pulmon lorna follow-up visit. Overall the patient has been feeling okay. He is tolerating the BiPAP better than CPAP. B iPAP therapy has been affecting beneficial. He still struggles with sleep however. I did recommend he can try melatonin to see if it helps him sleep. Also is AHI continues to be elevated to 9. Therefore I will increase the BiPAP some from 14/10 to 15/12. He is going to call me in a couple weeks to see how the AHI is doing will continue to tailor the pressures accordingly to make sure that his AHI is below 5. He also needs to make sure the use it more than 4 hours a night. From a respiratory status is responding well to the current respiratory regimen. He has been trying to exercise more regularly. The patient is otherwise without any other complaints. [facility] Medical History (Updated 10/06/23 @ 20:28 by Mirza Humphreys MD) Speech disturbance Cerebrovascular disease Transaminitis Snoring Back pain Left leg pain Peripheral neuropathy Aortic aneurysm Lung cancer DREW on CPAP Glaucoma Pulmonary nodules COPD (chronic obstructive pulmonary disease) Surgical History H/O shoulder surgery H/O hernia repair History of colon surgery History of lung surgery Social History Alcohol intake: never Patient Tobacco Use Status: Former Tobacco user Tobacco use type: Cigarette Years Smoked: 25 Years Review of Systems Const Reports daytime sleepiness and Denies night sweats Eyes Denies blurry vision, Denies exophthalmos and Denies change in vision ENT Denies change in voice, Denies lip swelling, Denies mouth pain, Reports nasal congestion, Reports nasal discharge and Denies tongue swelling Card Denies chest pain and Reports dyspnea on exertion Resp Reports cough, Reports dyspnea on exertion and Denies wheezing GI Reports no additional complaints Musc Denies no additional complaints Neuro Reports as per HPI, Denies Neuro-related abnormal movements and Denies focal weakness Psych Denies no additional complaints Gurinder/Lymph Denies easy bleeding and Denies lymphadenopathy Aller/Immun Denies lip swelling, Denies tongue swelling and Denies wheezing Physical Exam Vital Signs: Last Vital Signs Pulse 66 02/08/24 10:19 BP 128/76 02/08/24 10:19 Pulse Ox 94 02/08/24 10:19 Oxygen Delivery Method Room Air 02/08/24 10:19 BMI result Body Mass Index 27.4 Neck Neck: Yes normal visual inspection, Yes full ROM and Yes no lymphadenopathy Chest Chest palpation & inspection: normal inspection of the chest Resp Auscultation: clear to auscultation bilaterally Cardio Rate: regular rate Rhythm: regular rhythm Heart sounds: S1 normal heart sound present and S2 normal heart sound present GI Palpation (GI): Soft to palpation and nontender Auscultation: normal bowel sounds Skin General skin exam: rashes and/or lesions noted Assessment & Plan Assessment & Plan (1) COPD (chronic obstructive pulmonary disease): Code(s): J44.9 - Chronic obstructive pulmonary disease, unspecified Qualifiers: COPD type: chronic bronchitis Chronic bronchitis type: mixed simple and mucopurulent Qualified Code(s): J41.8 - Mixed simple and mucopurulent chronic bronchitis (2) Pulmonary nodules: Code(s): R91.8 - Other nonspecific abnormal finding of lung field Plan: largest 7mm LLL nodule (3) DREW on CPAP: Code(s): G47.33 - Obstructive sleep apnea (adult) (pediatric); Z99.89 - Dependence on other enabling machines and devices (4) Aortic aneurysm: Code(s): I71.9 - Aortic aneurysm of unspecified site, without rupture Qualifiers: Aortic location: unspecified Presence of rupture: without rupture Qualified Code(s): I71.9 - Aortic aneurysm of unspecified site, without rupture (5) Lung cancer: Code(s): C34.90 - Malignant neoplasm of unspecified part of unspecified bronchus or lung Qualifiers: Laterality: unspecified laterality Lung location: unspecified part of lung Qualified Code(s): C34.90 - Malignant neoplasm of unspecified part of unspecified bronchus or lung Plan continue Symbicort continue Spiriva, stop if any visual changes. Needs to have his eye pressures checked serially LOYD as needed BIPAP 14/10-> 15/12 for AHI [address] chest at [facility] start Melatonin as needed for sleep F/U 4 months Medications: New melatonin 5 mg PO BEDTIME 30 days PRN 30 tabs 6RF sleep Coding Level of Care Code Est Pt Level 4 (10614) Diagnoses Mixed simple and mucopurulent chronic bronchitis J41.8 COPD type: chronic bronchitis Chronic bronchitis type: mixed simple and mucopurulent Pulmonary nodules R91.8 DREW on CPAP G47.33; Z99.89 Aortic aneurysm without rupture, unspecified portion of aorta I71.9 Aortic location: unspecified Presence of rupture: without rupture Malignant neoplasm of lung, unspecified laterality, unspecified part of lung C34.90 Laterality: unspecified laterality Lung location: unspecified part of lung
[2024-02-08 10:19] VITALS: BP 128/76; PULSE 66; O2SAT 94; BMI 27.4
== END 2024-02-08 10:41 | disposition home or self-care (01) ==
PROVIDERS: PCP Internal Medicine; Visit Provider Hospitalist
DX: J41.8 Mixed simple and mucopurulent chronic bronchitis (principal); R91.8 Other nonspecific abnormal finding of lung field; G47.33 Obstructive sleep apnea (adult) (pediatric); Z99.89 Dependence on other enabling machines and devices; I71.9 Aortic aneurysm of unspecified site, without rupture; C34.90 Malignant neoplasm of unspecified part of unspecified bronchus or lung
CPT/HCPCS: 99214

== ENCOUNTER → 2024-02-08 09:27 | Outpatient (BNVA) | payer BC, SELFPAY | PROVIDERS: PCP Internal Medicine; Visit Provider Hospitalist ==

== ENCOUNTER 2024-08-13 09:17 | Outpatient (AMB) | payer BC, SELFPAY ==
--- NOTE | 2024-08-13 09:19 | A.OFFVIS_ITS ---
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 The patient was evaluated back in 2007 for concerning pulmonary nodule and underwent a lobectomy with curative intent. The patient did not need any chemotherapy afterwards. He did have multiple pulmonary nodules there follow closely until 2019. His biggest nodule measuring 7 mm in size in the left lower lobe. In addition to that the patient did have some postoperative changes. Overall he is doing well. He has been stable on the Symbicort and Spiriva. However, he was evaluated by ophthalmology and found to have narrow angle glaucoma. Therefore he was taken off the Spiriva and also requested to come off the Symbicort as well. He is scheduled to undergo surgical intervention for the glaucoma in the coming weeks. Afterwards he is able to go back on the Symbicort. The patient does have some wheezing on examination. I did recommend that if he has worsening wheezing and we could also just place him on inhaled corticosteroids that would ease his respiratory symptoms nathan waiting for his surgery. But, he rather not taking inhalers just in case they would interfere with surgery. In the meantime the patient can use short-acting beta agonist once or twice a day in order to help with his underlying respiratory symptoms. In regards to his pulmonary nodules last CT scan of the chest was back in 2019. I personally reviewed the CT scan with him. It appears that he does have also an ascending aortic aneurysm measuring 4.2 cm in size. In view of the aneurysm and also the pulmonary nodules that had not been followed for more than 2 years it is reasonable to perform a CT chest with contrast to assess the aortic aneurysm and also assess for the pulmonary nodules, specially the 7 mm nodule in the left lower lobe. The patient continues to have some dyspnea on exertion [id number] severity. He con tinues to work though and he stays active as much as possible. I am hopeful that once he goes back in his respiratory therapy he will do better. the patient is also on CPAP therapy for obstructive sleep apnea. He has been on CPAP therapy now for many years. He tolerates it well. The therapy has been affecting beneficial. He does get supplies regularly. I did request that he bring machine and for his next visit so we can assess it and adjusted accordingly. 12/06/2022 the patient is here for pulmonary sick visit. Apparently in this October the patient developed the flu. Subsequently after that started developing worsening chest tightness and wheezing. He then a 2nd course of prednisone. In addition to that he is also on a azithromycin. still complained of significant chest tightness and wheezing. Moderate severity. He has been using his nebulizer several times a day. Denies any fevers or chills. He did undergo a chest x-ray without any acute airspace disease. He also had a CT scan sometime in September 2022 demonstrating stable postoperative changes. He does have his CPAP although it has been difficult for him to use her why been sick. Hopefully can go back to using it regularly once he is feeling better. He is wondering if he could have a potential trigger for her respiratory status. Will have him undergo blood work to assess his neurological status and also to assess any allergy triggers. I did recommend he had blood work at least 1 week after completing the prednisone so it does not affect the results as much. In addition to that the patient has been having issues with neuropathy of the lower extremities. He will talk to his primary care further. He is looking for a neurologist. 01/12/2023 the patient is here for a pulmonary follow-up visit. He is feeling better from a respiratory status. He has been using his respiratory inhalers as prescribed. From all the coughing started developing some periumbilical discomfort. He felt a little fullness. 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 Now he is requiring surgery. At least now from a respiratory status the patient is doing better. Will go ahead and add singular to further optimize his respiratory therapy. The patient does have increased risk for perioperative pulmonary complications which include; atelectasis, hypoxia, bronchospasms and pneumonia. At this point the patient is medically optimized and may proceed with surgery. If he develops any worsening symptoms he is to call the office prior to his surgery. The patient has been trying to use CPAP. However, his mask is very uncomfortable. I did have a different mask for him that he could try, N20 medium. hopefully this mass does not irritate some itchy scalp like his other mask. If this mask works for him he will let me know so I can order 1 to his DME company,[employer]. Also personally reviewed his CT chest, with an area of density adjacent to his lobectomy. Will plan to repeat CT chest in 4-6 months to assess for reoccurrence. 04/06/2023 the patient is here for a pulmonary follow-up visit. Since we last spoke the patient was in the hospital after developing a CVA. The patient did have slurred speech. Denies any focal weakness or sensory loss. He had changes in his mood. The patient did go to [facility] where he did extensive testing. He is also following closely with Neurology. Apparently the time frame did not qualify him for tPA. The patient was placed on aspirin Plavix. Now he is only taking aspirin. She understands that he needs to uses CPAP to decrease his risk for cerebrovascular disease. He still struggles with. Although he does use more than 4 hours a night. In addition to that, he kd andrez uses respiratory therapy. Seems to be working better for him. He is should be scheduled for CT scan in April but will push it out to May since he has a planned trip to [place]. 10/05/2023 the patient is here for a pulmonary follow-up visit. The patient overall is feeling better. He is recovering from the stroke. Still has some residual symptoms but minimal. The patient is still struggling with CPAP. He is trying to use it. Although under current settings is AHI still elevated at 10. he struggles with the CPAP set up. The patient did contemplate on the hypoglossal nerve stimulator. Although he is concerned. He also has a oral mandibular advancement device. The patient does try to use it as well. Again, he does use the CPAP more than 4 hours and even on high pressure settings the patient is still having significant elevation is in his AHI. In view of his recent stroke increased risk for cardiovascular and cerebrovascular disease he is failed CPAP and I will request he be exchanged to a BiPAP. The BiPAP will be more effective although will have to titrate the pressures accordingly. 02/08/2024 the patient is here for pulmonary follow-up visit. Overall the patien t has been feeling okay. He is tolerating the BiPAP better than CPAP. BiPAP therapy has been affecting beneficial. He still struggles with sleep however. I did recommend he can try melatonin to see if it helps him sleep. Also is AHI continues to be elevated to 9. Therefore I will increase the BiPAP some from 14/10 to 15/12. He is going to call me in a couple weeks to see how the AHI is doing will continue to tailor the pressures accordingly to make sure that his AHI is below 5. He also needs to make sure the use it more than 4 hours a night. From a respiratory status is responding well to the current respiratory regimen. He has been trying to exercise more regularly. The patient is otherwise without any other complaints. 08/13/2024 the patient is here for pulmonary follow-up visit. Overall. He did finally get the Spiriva which has been effective. He continues on the Symbicort. Has a rescue inhaler but typically does not use it more than twice a week. No need for prednisone. The patient is not going to get the COVID vaccine as he believes that is related to why he ended up with a stroke. In the meantime he is going to the gym and he has lost significant amount of weight. Therefore will go ahead and repeat his home sleep study with hopes that he no longer needs Pap therapy. He struggles with the PAP therapy. Currently has a BiPAP. Hopefully with a sleep study in the weight loss and positional therapy shows that he no longer needs the PAP therapy. In addition to that he has a history lung cancer. His last CT scan that we have on record was from 08/10/2023 done at [facility]. Decide irregularity and recommended a short-term follow-up. Therefore will request a CT scan this time to further adjust the abnormalities in that area. [facility] Medical History (Updated 10/06/23 @ 20:28 by Mirza Humphreys MD) Speech disturbance Cerebrovascular disease Transaminitis Snoring Back pain Left leg pain Peripheral neuropathy Aortic aneurysm Lung cancer DREW on CPAP Glaucoma Pulmonary nodules COPD (chronic obstructive pulmonary disease) Surgical History H/O shoulder surgery H/O hernia repair History of colon surgery History of lung surgery Social History Alcohol intake: never Patient Tobacco Use Status: Former Tobacco user Tobacco use type: Cigarette Years Smoked: 25 Years Review of Systems Const Reports daytime sleepiness, Denies night sweats and Reports weight loss Eyes Denies blurry vision, Denies exophthalmos and Denies change in vision ENT Denies change in voice, Denies lip swelling, Denies mouth pain, Reports nasal congestion, Reports nasal discharge and Denies tongue swelling Card Denies chest pain and Reports dyspnea on exertion Resp Reports cough, Reports dyspnea on exertion and Denies wheezing GI Reports no additional complaints Musc Denies no additional complaints Neuro Reports as per HPI, Denies Neuro-related abnormal movements and Denies focal weakness Psych Denies no additional complaints Gurinder/Lymph Denies easy bleeding and Denies lymphadenopathy Aller/Immun Denies lip swelling, Denies tongue swelling and Denies wheezing Physical Exam Vital Signs: Last Vital Signs Pulse 77 08/13/24 09:20 BP 128/70 08/13/24 09:20 Pulse Ox 98 08/13/24 09:20 Oxygen Delivery Method Room Air 08/13/24 09:20 BMI result Body Mass Index 26.4 Neck Neck: Yes normal visual inspection, Yes full ROM and Yes no lymphadenopathy Chest Chest palpation & inspection: normal inspection of the chest Resp Auscultation: clear to auscultation bilaterally Cardio Rate: regular rate Rhythm: regular rhythm Heart sounds: S1 normal heart sound present and S2 normal heart sound present GI Palpation (GI): Soft to palpation and nontender Auscultation: normal bowel sounds Skin General skin exam: rashes and/or lesions noted Assessment & Plan Assessment & Plan (1) COPD (chronic obstructive pulmonary disease): Code(s): J44.9 - Chronic obstructive pulmonary disease, unspecified Category: Medical Qualifiers: COPD type: chronic bronchitis Chronic bronchitis type: mixed simple and mucopurulent Qualified Code(s): J41.8 - Mixed simple and mucopurulent chronic bronchitis (2) Pulmonary nodules: Code(s): R91.8 - Other nonspecific abnormal finding of lung field Category: Medical Plan: largest 7mm LLL nodule (3) DREW on CPAP: Code(s): G47.33 - Obstructive sleep apnea (adult) (pediatric); Z99.89 - Dependence on other enabling machines and devices Category: Medical (4) Aortic aneurysm: Code(s): I71.9 - Aortic aneurysm of unspecified site, without rupture Category: Medical Qualifiers: Aortic location: unspecified Presence of rupture: without rupture Qualified Code(s): I71.9 - Aortic aneurysm of unspecified site, without rupture (5) Lung cancer: Code(s): C34.90 - Malignant neoplasm of unspecified part of unspecified bronchus or lung Category: Medical Qualifiers: Laterality: unspecified laterality Lung location: unspecified part of lung Qualified Code(s): C34.90 - Malignant neoplasm of unspecified part of unspecified bronchus or lung (6) Obstructive sleep apnea: Comment: severe degree of sleep apnea. The AHI was 31/hr and oxygen hayder was 76%. Code(s): G47.33 - Obstructive sleep apnea (adult) (pediatric) Category: Medical Plan continue Symbicort continue Spiriva LOYD as needed BIPAP 03/09-> 15 for AHI 9 Home sleep study after significant weight loss to address the question of need for PAP therapy [place] CT chest [place] [facility] [place] 3-4 months Orders: Orders RT home sleep study Today G47.33 - Obstructive sleep apnea (adult) (pediatric) CT chest wo IV con Today C34.90 - Malignant neoplasm of unspecified part of unspecified bronchus or lung Coding Level of Care Code Est Pt Level 4 (10471) Complex EM visit Add On G2211 Diagnoses Mixed simple and mucopurulent chronic bronchitis J41.8 COPD type: chronic bronchitis Chronic bronchitis type: mixed simple and mucopurulent Pulmonary nodules R91.8 RDEW on CPAP G47.33; Z99.89 Aortic aneurysm without rupture, unspecified portion of aorta I71.9 Aortic location: unspecified Presence of rupture: without rupture Malignant neoplasm of lung, unspecified laterality, unspecified part of lung C34.90 Laterality: unspecified laterality Lung location: unspecified part of lung Obstructive sleep apnea G47.33 Time Spent (min) 18
[2024-08-13 09:20] VITALS: BP 128/70; PULSE 77; O2SAT 98; BMI 26.4
== END 2024-08-13 09:46 | disposition home or self-care (01) ==
PROVIDERS: PCP Internal Medicine; Visit Provider Hospitalist
DX: J41.8 Mixed simple and mucopurulent chronic bronchitis (principal); R91.8 Other nonspecific abnormal finding of lung field; G47.33 Obstructive sleep apnea (adult) (pediatric); Z99.89 Dependence on other enabling machines and devices; I71.9 Aortic aneurysm of unspecified site, without rupture; C34.90 Malignant neoplasm of unspecified part of unspecified bronchus or lung
CPT/HCPCS: 99214

== ENCOUNTER → 2024-08-13 09:17 | Outpatient (BNVA) | payer BC, SELFPAY | PROVIDERS: PCP Internal Medicine; Visit Provider Hospitalist ==

== ENCOUNTER 2024-09-25 10:26 | Outpatient (REF) | payer BC, SELFPAY | END 2024-09-25 10:27 | disposition home or self-care (01) | LOC: HO.CT 10:26 | PROVIDERS: PCP Internal Medicine; Visit Provider Hospitalist | DX: C34.90 Malignant neoplasm of unspecified part of unspecified bronchus or lung (principal); G47.33 Obstructive sleep apnea (adult) (pediatric) | CPT/HCPCS: 71250 ==

== ENCOUNTER 2024-11-26 09:21 | Outpatient (AMB) | payer BC, SELFPAY ==
[2024-11-26 09:22] VITALS: BP 108/80; PULSE 75; O2SAT 96; BMI 27.1
--- NOTE | 2024-11-26 09:22 | MHC.OFFVIS ---
Vital Signs 11/26/24 09:22 Height 5 ft 7 in Weight 173 lb 1.006 oz BMI 27.1 BP 108/80 Blood Pressure Location Rt brachial Position Sitting Pulse 75 Pulse Source Pulse Oximeter Pulse Oximetry (%) 96 Oxygen Delivery Method Room Air Intake Visit Reasons: COPD Allergies No Known Allergies Allergy (Verified 11/26/24 09:25) HPI Comments Details: The patient is a 64-year-old gentleman with a known history of COPD in addition to lung cancer. The patient was evaluated back in 2007 for concerning pulmonary nodule and underwent a lobectomy with curative intent. The patient did not need any chemotherapy afterwards. He did have multiple pulmonary nodules there follow closely until 2019. His biggest nodule measuring 7 mm in size in the left lower lobe. In addition to that the patient did have some postoperative changes. Overall he is doing well. He has been stable on the Symbicort and Spiriva. However, he was evaluated by ophthalmology and found to have narrow angle glaucoma. Therefore he was taken off the Spiriva and also requested to come off the Symbicort as well. He is scheduled to undergo surgical intervention for the glaucoma in the coming weeks. Afterwards he is able to go back on the Symbicort. The patient does have some wheezing on examination. I did recommend that if he has worsening wheezing and we could also just place him on inhaled corticosteroids that would ease his respiratory symptoms nathan waiting for his surgery. But, he rather not taking inhalers just in case they would interfere with surgery. In the meantime the patient can use short-acting beta agonist once or twice a day in order to help with his underlying respiratory symptoms. In regards to his pulmonary nodules last CT scan of the chest was back in 2019. I personally reviewed the CT scan with him. It appears that he does have also an ascending aortic aneurysm measuring 4.2 cm in size. In view of the aneurysm and also the pulmonary nodules that had not been followed for more than 2 years it is reasonable to perform a CT chest with contrast to assess the aortic aneurysm and also assess for the pulmonary nodules, specially the 7 mm nodule in the left lower lobe. The patient continues to have some dyspnea on exertion [id number] severity. He continues to work though and he stays active as much as possible. I am hopeful that once he goes back in his respiratory therapy he will do better. the patient is also on CPAP therapy for obstructive sleep apnea. He has been on CPAP therapy now for many years. He tolerates it well. The therapy has been affecting beneficial. He does get supplies regularly. I did request that he bring machine and for his next visit so we can assess it and adjusted accordingly. 12/06/2022 the patient is here for pulmonary sick visit. Apparently in this October the patient developed the flu. Subsequently after that started developing worsening chest tightness and wheezing. He then a 2nd course of prednisone. In addition to that he is also on a azithromycin. still complained of significant chest tightness and wheezing. Moderate severity. He has been using his nebulizer several times a day. Denies any fevers or chills. He did undergo a chest x-ray without any acute airspace disease. He also had a CT scan sometime in September 2022 demonstrating stable postoperative changes. He does have his CPAP although it has been difficult for him to use her why been sick. Hopefully can go back to using it regularly once he is feeling better. He is wondering if he could have a potential trigger for her respiratory status. Will have him undergo blood work to assess his neurological status and also to assess any allergy triggers. I did recommend he had blood work at least 1 week after completing the prednisone so it does not affect the results as much. In addition to that the patient has been having issues with neuropathy of the lower extremities. He will talk to his primary care further. He is looking for a neurologist. 01/12/2023 the patient is here for a pulmonary follow-up visit. He is feeling better from a respiratory status. He has been using his respiratory inhalers as prescribed. From all the coughing started developing some periumbilical discomfort. He felt a little fullness. 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 Now he is requiring surgery. At least now from a respiratory status the patient is doing better. Will go ahead and add singular to further optimize his respiratory therapy. The patient does have increased risk for perioperative pulmonary complications which include; atelectasis, hypoxia, bronchospasms and pneumonia. At this point the patient is medically optimized and may proceed with surgery. If he develops any worsening symptoms he is to call the office prior to his surgery. The patient has been trying to use CPAP. However, his mask is very uncomfortable. I did have a different mask for him that he could try, N20 medium. hopefully this mass does not irritate some itchy scalp like his other mask. If this mask works for him he will let me know so I can order 1 to his DME company,[employer]. Also personally reviewed his CT chest, with an area of density adjacent to his lobectomy. Will plan to repeat CT chest in 4-6 months to assess for reoccurrence. 04/06/2023 the patient is here for a pulmonary follow-up visit. Since we last spoke the patient was in the hospital after developing a CVA. The patient did have slurred speech. Denies any focal weakness or sensory loss. He had changes in his mood. The patient did go to [facility] where he did extensive testing. He is also following closely with Neurology. Apparently the time frame did not qualify him for tPA. The patient was placed on aspirin Plavix. Now he is only taking aspirin. She understands that he needs to uses CPAP to decrease his risk for cerebrovascular disease. He still struggles with. Although he does use more than 4 hours a night. In addition to that, he continues uses respiratory therapy. Seems to be working better for him. He is should be scheduled for CT scan in April but will push it out to May since he has a planned trip to [place]. 10/05/2023 the patient is here for a pulmonary follow-up visit. The patient overall is feeling better. He is recovering from the stroke. Still has some residual symptoms but minimal. The patient is still struggling with CPAP. He is trying to use it. Although under current settings is AHI still elevated at 10. he struggles with the CPAP set up. The patient did contemplate on the hypoglossal nerve stimulator. Although he is concerned. He also has a oral mandibular advancement device. The patient does try to use it as well. Again, he does use the CPAP more than 4 hours and even on high pressure settings the patient is still having significant elevation is in his AHI. In view of his recent stroke increased risk for cardiovascular and cerebrovascular disease he is failed CPAP and I will request he be exchanged to a BiPAP. The BiPAP will be more effective although will have to titrate the pressures accordingly. 02/08/2024 the patient is here for pulmonary follow-up visit. Overall the patient has been feeling okay. He is tolerating the BiPAP better than CPAP. BiPAP therapy has been affecting beneficial. He still struggles with sleep however. I did recommend he can try melatonin to see if it helps him sleep. Also is AHI continues to be elevated to 9. Therefore I will increase the BiPAP some from 14/10 to 15/12. He is going to call me in a couple weeks to see how the AHI is doing will continue to tailor the pressures accordingly to make sure that his AHI is below 5. He also needs to make sure the use it more than 4 hours a night. From a respiratory status is responding well to the current respiratory regimen. He has been trying to exercise more regularly. The patient is otherwise without any other complaints. 08/13/2024 the patient is here for pulmonary follow-up visit. Overall. He did finally get the Spiriva which has been effective. He continues on the Symbicort. Has a rescue inhaler but typically does not use it more than twice a week. No need for prednisone. The patient is not going to get the COVID vaccine as he believes that is related to why he ended up with a stroke. In the meantime he is going to the gym and he has lost significant amount of weight. Therefore will go ahead and repeat his home sleep study with hopes that he no longer needs Pap therapy. He struggles with the PAP therapy. Currently has a BiPAP. Hopefully with a sleep study in the weight loss and positional therapy shows that he no longer needs the PAP therapy. In addition to that he has a history lung cancer. His last CT scan that we have on record was from 08/10/2023 done at [facility]. Decide irregularity and recommended a short-term follow-up. Therefore will request a CT scan this time to further adjust the abnormalities in that area. 11/26/2024 the patient is here for a pulmonary follow-up visit. Overall the patient has been doing well. He continues uses respiratory therapy as prescribed. He did undergo CT scan of the chest done in September. Has not been officially read. I did personally reviewed and appears that his left lower lobe nodule appears to be stable measuring between 5.5-6 mm in size. Otherwise some emphysematous changes. He continues use the BiPAP. Having hard time with some mask. I did provide him a sample F 40 mask that he try and also requested from the [employer] since he tolerated it well. He will see if this provides better fit in order for him to tolerate the BiPAP further. Current settings are adequate 15/12 and he is using it with good benefit. The patient has been trying to use it more than 4 hours but sometimes he takes it off without realizing. Hopefully with the new mask he will not feel it as uncomfortable new tolerated better. And hopefully will provide a better seal to minimize the air leak. He also has a dental appliance. He is going to talk to his dentist. He is also good for him to have that as backup in case he needs to use that when he does not have the BiPAP available. He is also using his nebulizer at times. He rather have a Judy system and more from his [employer] company. [facility] Medical History (Updated 10/06/23 @ 20:28 by Mirza Humphreys MD) Speech disturbance Cerebrovascular disease Transaminitis Snoring Back pain Left leg pain Peripheral neuropathy Aortic aneurysm Lung cancer DREW on CPAP Glaucoma Pulmonary nodules COPD (chronic obstructive pulmonary disease) Surgical History H/O shoulder surgery H/O hernia repair History of colon surgery History of lung surgery Social History Alcohol intake: never Patient Tobacco Use Status: Former Tobacco user Tobacco use type: Cigarette Years Smoked: 25 Years Review of Systems Const Reports daytime sleepiness, Denies night sweats and Reports weight loss Eyes Denies blurry vision, Denies exophthalmos and Denies change in vision ENT Denies change in voice, Denies lip swelling, Denies mouth pain, Reports nasal congestion, Reports nasal discharge and Denies tongue swelling Card Denies chest pain and Reports dyspnea on exertion Resp Reports cough, Reports dyspnea on exertion and Denies wheezing GI Reports no additional complaints Musc Denies no additional complaints Neuro Reports as per HPI, Denies Neuro-related abnormal movements and Denies focal weakness Psych Denies no additional complaints Gurinder/Lymph Denies easy bleeding and Denies lymphadenopathy Aller/Immun Denies lip swelling, Denies tongue swelling and Denies wheezing Physical Exam Vital Signs: Last Vital Signs Pulse 75 11/26/24 09:22 BP 108/80 11/26/24 09:22 Pulse Ox 96 11/26/24 09:22 Oxygen Delivery Method Room Air 01/06/25 09:22 BMI result Body Mass Index 27.1 Neck Neck: Yes normal visual inspection, Yes full ROM and Yes no lymphadenopathy Chest Chest palpation & inspection: normal inspection of the chest Resp Auscultation: clear to auscultation bilaterally Cardio Rate: regular rate Rhythm: regular rhythm Heart sounds: S1 normal heart sound present and S2 normal heart sound present GI Palpation (GI): Soft to palpation and nontender Auscultation: normal bowel sounds Skin General skin exam: rashes and/or lesions noted Assessment & Plan Assessment & Plan (1) COPD (chronic obstructive pulmonary disease): Code(s): J44.9 - Chronic obstructive pulmonary disease, unspecified Category: Medical Qualifiers: COPD type: chronic bronchitis Chronic bronchitis type: mixed simple and mucopurulent Qualified Code(s): J41.8 - Mixed simple and mucopurulent chronic bronchitis (2) Pulmonary nodules: Code(s): R91.8 - Other nonspecific abnormal finding of lung field Category: Medical Plan: largest 7mm LLL nodule (3) DREW on CPAP: Code(s): G47.33 - Obstructive sleep apnea (adult) (pediatric); Z99.89 - Dependence on other enabling machines and devices Category: Medical (4) Aortic aneurysm: Code(s): I71.9 - Aortic aneurysm of unspecified site, without rupture Category: Medical Qualifiers: Aortic location: unspecified Presence of rupture: without rupture Qualified Code(s): I71.9 - Aortic aneurysm of unspecified site, without rupture (5) Lung cancer: Code(s): C34.90 - Malignant neoplasm of unspecified part of unspecified bronchus or lung Category: Medical Qualifiers: Laterality: unspecified laterality Lung location: unspecified part of lung Qualified Code(s): C34.90 - Malignant neoplasm of unspecified part of unspecified bronchus or lung (6) Obstructive sleep apnea: Comment: severe degree of sleep apnea. The AHI was 31/hr and oxygen hayder was 76%. Code(s): G47.33 - Obstructive sleep apnea (adult) (pediatric) Category: Medical Plan continue Symbicort continue Spiriva LOYD as needed BIPAP 04/11 , trial F40 mask repeat CT chest stable F/U 6-8 months Coding Level of Care Code Est Pt Level 4 (94172) Diagnoses Mixed simple and mucopurulent chronic bronchitis J41.8 COPD type: chronic bronchitis Chronic bronchitis type: mixed simple and mucopurulent Pulmonary nodules R91.8 DREW on CPAP G47.33; Z99.89 Aortic aneurysm without rupture, unspecified portion of aorta I71.9 Aortic location: unspecified Presence of rupture: without rupture Malignant neoplasm of lung, unspecified laterality, unspecified part of lung C34.90 Laterality: unspecified laterality Lung location: unspecified part of lung Obstructive sleep apnea G47.33 Time Spent (min) 17
--- OUTSIDE RECORDS SUMMARY | 2024-11-26 09:47 | XMS_ITS | Data Portability ---
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 Plan of Treatment Reminders Order Date Submit Date Provider Last Modified By Organization Details Last Modified Time Details Appointments None recorded. Lab rapid SARS CoV 2 Ag, QL IA, respiratory specimen 2022 023 [id number] [facility] [address], [address] [place], [address], 16:19:53 rapid flu (A+B) 2022 023 [id number] [facility] [address], [address] [place], [address], 16:19:53 Referral None recorded. Procedures None recorded. Surgeries None recorded. Imaging None recorded. Medication Orders ipratropium bromide 0.02 % solution for inhalation 2022 023 [facility][id number], [address], [place], [address], 16:19:56 Patient TargetsNo targets recorded. Patient Instructions Encounter Date Encounter Id Patient Instructions Last Modified By Organization Details Last Modified Time 12/13/2022 [id number] coronavirus (covid-19): care instructions [email or web address] Not available 12/13/2022 16:19:53 Coronavirus (COVID-19) in Children: Care Instructions [email or web address] Not available 12/13/2022 16:19:53 cough: care instructions [email or web address] Not available 12/13/2022 16:19:53 Acute bronchitis is a common clinical condition characterized by an acute onset but persistent cough, with or without sputum production. It is typically self-limited, resolving within one to three weeks. Symptoms result from inflammation of the lower respiratory tract and are most frequently due to viral infection. Treatment is focused on patient education and supportive care. Antibiotics are not needed for the great majority of patients with acute bronchitis but are greatly overused for this condition. Reducing antibiotic use for acute bronchitis is a national and international health care priority. In most patients, the cough persists for 1 to 3 weeks, with a average duration of 18 days. The cough may be associated with either purulent or nonpurulent sputum production The presence of purulent sputum is a nonspecific finding and does not appear to be predictive of bacterial infection or that antibiotics are needed. For the great majority of patients, use of antibiotics does not hasten recovery or prevent complications but puts patients at increased risk of adverse effects including potentially severe complications such as Clostridioides difficile infection and anaphylaxis. Non-Pharmacological treatment for coughin. Throat lozenges 2. Hot tea 3. Honey 4. Smoking cessation 5. Avoidance of secondhand smoke. Pharmacological Treatment: 1. Robatussin or Guafenasin 2. Antihistamines 3. Dextromethoraphen I would plan on being seen again if any of the following symptoms develop: 1. Fever (100.5) 2. Shortness of breath 3. Wheezing 4. Worsening Cough. I would go to the ER if you develop: 1. Severe Shortness of breath 2. Chest Pain 3. Wheezing 4. Coughing up Blood Not available 12/13/2022 16:19:48 Reason for Referral None Reported. Results Created Date Observation Date Name Description Value Unit Range Abnormal Flag Note LastModifiedBy Organization Detail LastModifiedTime 12/13/1912/13/2022 rapid flu (A+B) Unknown Analyte Normal = Negati ve Not Available [address] [place], [address], 12/13/2022 14:54:38 12/13/1912/13/2022 rapid flu (A+B) Unknown Analyte Normal = Negati ve Not Available [address] [place], [address], 12/13/2022 14:54:38 12/13/1912/13/2022 rapid flu (A+B) Unknown Analyte negati ve Not Available [address] [place], [address], 12/13/2022 14:54:38 12/13/1912/13/2022 rapid flu (A+B) Unknown Analyte negati ve Not Available [address] [place], [address], 12/13/2022 14:54:38 12/13/19 23 12/13/2022 rapid SARS CoV 2 Ag, QL IA, respi rator y speci men Unknown Analyte Normal =Negat anitra Not Available [address] [place], [address], 12/13/2022 14:48:36 12/13/1912/13/2022 rapid SARS CoV 2 Ag, QL IA, respi rator y speci men Unknown Analyte negati ve Not Available [address] [place], [address], 12/13/2022 14:48:36 Result Notes None recorded. Problems Name Problem SNOMED Code Status Onset Date Resolution Date Notes Provider Name and Address Organization Details Recorded Time Asthma 556588805 Active 023 SUJIT riley, PA - [facility] 12/13/2022 14:49:56 Problem Notes None recorded. Medical Equipment None Reported. Allergies Allergen ID Allergen Name Allergen Category Reaction Reaction Severity Criticality Documentation Date Start Date Code Code System Note Provider Name and Address Organization Details Recorded Time 082598 Symbicort medicatio n Not available Not available Not available 12/13/2022 [id number] RxNorm SUJIT riley, PA - [facility] 3 14:49:36 Medications Name Sig Start Date Stop Date Status Note LastModified by Organization Details LastModified Time cyclobenzapr ine 10 mg tablet TAKE 1 TABLET BY MOUTH EVERY 8 HOURS active Not Available Not Available No t Available prednisone 10 mg tablet PLEASE SEE ATTACHED FOR DETAILED DIRECTIONS active Not Available Not Available N ot Available cefuroxime axetil 250 mg tablet TAKE 1 TABLET BY MOUTH EVERY 12 HOURS FOR 10 DAYS active Not Available Not Available Not Available ipratropium 0.5 mg-albuterol 3 mg (2.5 mg base)/3 mL nebulization soln INHALE 3ML VIA NEBULIZER 2 TIMES A DAY FOR 30 DAYS active Not Available Not Available Not Available azithromycin 250 mg tablet TAKE 2 TABLETS BY MOUTH TODAY, THEN TAKE 1 TABLET DAILY FOR 4 DAYS active Not Available Not Available No t Available benzonatate 200 mg capsule TAKE 1 CAPSULE BY MOUTH 3 TIMES A DAY NEEDED FOR 10 DAYS active Not Available Not Available Not Available prednisone 20 mg tablet 3 TABLETS IN THE MORNING FOR 3 DAYS THEN 2 TABLETS FOR 3 DAYS THEN 1 TABLET FOR 3 DAYS ONCE A DAY active Not Available Not Available No t Available sildenafil 100 mg tablet TAKE ONE TABLET BY MOUTH 1/2 HOUR BEFORE SEXUAL ACTIVITY active Not Available Not Available No t Available montelukast 10 mg tablet TAKE 1 TABLET BY MOUTH EVERY DAY active Not Available Not Available No t Available methylpredni solone 4 mg tablets in a dose pack TAKE 6 TABLETS ON DAY 1 DIRECTED ON PACKAGE AND DECREASE BY 1 TAB EACH DAY FOR A TOTAL OF 6 DAYS active Not Available Not Available No t Available albuterol sulfate HFA 90 mcg/actuatio n aerosol inhaler TAKE 2 PUFFS EVERY 6 HOURS NEEDED FOR SHORTNESS OF BREATH active Not Available Not Available No t Available ipratropium bromide 0.02 % solution for inhalation INHALE 2.5 ML VIA NEBULIZER EVERY 6 HOURS active Not Available Not Available No t Available Symbicort 160 mcg-4.5 mcg/actuatio n HFA aerosol inhaler INHALE 2 PUFFS TWICE DAILY active Not Available Not Available No t Available Symbicort active Not Available Not Johanny ilable Not Available Zac Estrada [facility] spacer DIRECTED active Not Available Not Available Not Available Spiriva Respimat 2.5 mcg/actuatio n solution for inhalation INHALE 2 PUFFS BY MOUTH DAILY active Not Available Not Available Not Available Readi-Cat 2 2 % (w/v) oral suspension TAKE DIRECTED active Not Available Not Available No t Available BinaxNOW COVID-19 Ag Self Test kit active Not Available Not Available Not Available Vitals Date Recorded Body height Body mass index (BMI) Body weight Oxygen saturation Oxygen saturation in Arterial blood by Pulse oximetry Heart rate Respiratory rate Body temperature Systolic blood pressure Diastolic blood pressure Provider Name and Address Organization Details Last Updated DateTime 3 170.18 cm 27.9 kg/m2 82407.4 4 g 96 % 96 % 100 /min 18 /min 98.5 [degF] 140 mm[Hg] 86 mm[Hg] SUJIT DUBOIS PA - [facility] 3 14:53:03 Social History Question Answer Notes LastModified by Organizat ion Details LastModified Time Tobacco Smoking Status Former Smoker SUJIT riley PA - [facility] 12/13/2022 14:50:14 What Is Your Level Of Alcohol Consumption? None Information not available 12/13/2022 When Did You Quit Smoking? 15+yearssin oracio reid Information not available 12/13/2022 Do You Use Any Illicit Or Recreational Drugs? No Information not available 12/13/2022 Have You Recently Traveled Abroad? No Information not available 12/13/2022 Do You Or Have You Ever Used Any Other Forms Of Tobacco Or Nicotine? No Information not available 12/13/2022 Sex: Unknown Functional Status None recorded. Mental Status None recorded. Family History Relationship Description Onset Age of this Age Resolved Age Notes LastModified by Organization Details LastModified Time Father No current problems or disability [email or web address] Not available 12/13 14:49:58 Mother No current problems or disability [email or web address] Not available 12/13 14:49:58 Medical History No medical history recorded. Immunizations Vaccine Type Date Status Note Provider Nam e and Address Organization Details Recorded Time COVID-19, mRNA, LNP-S, PF, 30 mcg/0.3 mL dose 11/25/2021 completed SUJIT riley PA - [facility] 12/13/2022 14:49:17 COVID-19, mRNA, LNP-S, PF, 30 mcg/0.3 mL dose, leilani-sucrose 03/18/2022 completed SUJIT MACHNACZ null, PA - [facility] 12/13/2022 14:49:17 COVID-19, mRNA, LNP-S, bivalent, PF, 50 mcg/0.5 mL or 25mcg/0.25 mL dose 08/19/2022 completed SUJIT MACHNACZ null, PA - [facility] 12/13/2022 14:49:17 Influenza, split virus, quadrivalent, PF 08/18/2022 completed SUJIT MACHNACZ null, PA - [facility] 12/13/2022 14:49:17 COVID-19, mRNA, LNP-S, PF, 30 mcg/0.3 mL dose 02/24/2021 completed SUJIT MACHNACZ null, PA - [facility] 12/13/2022 14:49:17 COVID-19, mRNA, LNP-S, PF, 30 mcg/0.3 mL dose 02/06/2021 completed SUJIT MACHNACZ null, PA - [facility] 12/13/2022 14:49:18 COVID-19, mRNA, LNP-S, PF, 100 mcg/0.5mL dose or 50 mcg/0.25mL dose 08/19/2022 completed SUJIT MACHNACZ null, PA - [facility] 12/13/2022 14:49:18 Influenza, split virus, quadrivalent, PF 08/04/2021 completed SUJIT MACHNACZ null, PA - [facility] 12/13/2022 14:49:18 Past Encounters Encounter ID Performer Location Encounter Start Date Encounter Closed Date Diagnosis/Indication Diagnosis SNOMED-CT Code Diagnosis ICD10 Code Diagnosis Note [id number] [facility] [address] [facility] [address] [facility] [place] [address] 12/13/2022 14:11:51 12/13/2022 16:22:38 Acute bronchitis 43446189 J20.9 Follow up with your Pulmonolog ist next weekContin ue the Prednisone and Inhaler I am going to add this other medication for your nebulizer. Health Concerns Section Related Observation LastModified by Organization Detai ls LastModified Time None Recorded Concern Status LastModified by Organization Details LastModified Time None Recorded Advance Directives Directive None Recorded Payers Encounter Date Sequence Insurance Name Policy Number Policy Mckenzie Covered Member ID Mckenzie Member ID Guarantor Name 12/13/2022 1 [place] [id number] Kurtis Lairdbins [id number] Danilo Navarro Notes Date Note Type Note Provider Name and Address Organization Details Recorded Time 3 text/html CoughReported bypatient.source of patient informationInformation obtained from patient; Patient arrived at Urgent Care ambulatory Quality:productive cough;dry Severity:moderate Duration:chronic; symptoms lasting over 2 weeks Timing:sudden Associated Symptoms:no fever; no chills; no chest pain; no heartburn; no nausea; no vomiting; no edema; no agitation; no wheezing; no post nasal dripNotes:The patient presents mainly for COVID and Influenza testing. Has had a cough for over 1 month. 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 On inhalors and nebulizers at home. PCP currently has him on Prednisone. The patient has been on 3 antibotics for this current inspection. The patient had pain in the femerol region that has subsided for now - but wanted to follow up with an orthopedist. They will not see him until he is cleared for COVID since he has this cough. He is here for testing so he can schedule. The patient is denying any chest pain. SALIMA CHAMBERS [address] [place], [address], [place] - [facility] 12/13/2022 22:08:08
== END 2024-11-26 09:43 | disposition home or self-care (01) ==
PROVIDERS: PCP Internal Medicine; Visit Provider Hospitalist
DX: J41.8 Mixed simple and mucopurulent chronic bronchitis (principal); R91.8 Other nonspecific abnormal finding of lung field; G47.33 Obstructive sleep apnea (adult) (pediatric); Z99.89 Dependence on other enabling machines and devices; I71.9 Aortic aneurysm of unspecified site, without rupture; C34.90 Malignant neoplasm of unspecified part of unspecified bronchus or lung
CPT/HCPCS: 99214

== ENCOUNTER → 2024-11-26 09:21 | Outpatient (BNVA) | payer BC, SELFPAY | PROVIDERS: PCP Internal Medicine; Visit Provider Hospitalist | DX: G47.33 Obstructive sleep apnea (adult) (pediatric) (principal); C34.90 Malignant neoplasm of unspecified part of unspecified bronchus or lung ==

== ENCOUNTER 2025-07-30 14:51 | Outpatient (AMB) | payer BC, SELFPAY ==
[2025-07-30 15:03] VITALS: BP 98/64; PULSE 83; O2SAT 93; BMI 27.4
--- NOTE | 2025-07-30 15:03 | MHC.OFFVIS ---
Vital Signs 07/30/25 15:03 Height 5 ft 7 in Weight 175 lb 4.28 oz BMI 27.4 BP 98/64 Blood Pressure Location Lt brachial Position Sitting Pulse 83 Pulse Source Pulse Oximeter Pulse Oximetry (%) 93 Oxygen Delivery Method Room Air Intake Visit Reasons: COPD Freight Inspector Required: No Accompanied by: Self / Same As Patient Allergies No Known Allergies Allergy (Verified 07/30/25 15:06) HPI Comments Details: The patient is a 65-year-old gentleman with a known history of COPD in addition to lung cancer. The patient was evaluated back in 2007 for concerning pulmonary nodule and underwent a lobectomy with curative intent. The patient did not need any chemotherapy afterwards. He did have multiple pulmonary nodules there follow closely until 2019. His biggest nodule measuring 7 mm in size in the left lower lobe. In addition to that the patient did have some postoperative changes. Overall he is doing well. He has been stable on the Symbicort and Spiriva. However, he was evaluated by ophthalmology and found to have narrow angle glaucoma. Therefore he was taken off the Spiriva and also requested to come off the Symbicort as well. He is scheduled to undergo surgical intervention for the glaucoma in the coming weeks. Afterwards he is able to go back on the Symbicort. The patient does have some wheezing on examination. I did recommend that if he has worsening wheezing and we could also just place him on inhaled corticosteroids that would ease his respiratory symptoms nathan waiting for his surgery. But, he rather not taking inhalers just in case they would interfere with surgery. In the meantime the patient can use short-acting beta agonist once or twice a day in order to help with his underlying respiratory symptoms. In regards to his pulmonary nodules last CT scan of the chest was back in 2019. I personally reviewed the CT scan with him. It appears that he does have also an ascending aortic aneurysm measuring 4.2 cm in size. In view of the aneurysm and also the pulmonary nodules that had not been followed for more than 2 years it is reasonable to perform a CT chest with contrast to assess the aortic aneurysm and also assess for the pulmonary nodules, specially the 7 mm nodule in the left lower lobe. The patient continues to have some dyspnea on exertion [id number] severity. He continues to work though and he stays active as much as possible. I am hopeful that once he goes back in his respiratory therapy he will do better. the patient is also on CPAP therapy for obstructive sleep apnea. He has been on CPAP therapy now for many years. He tolerates it well. The therapy has been affecting beneficial. He does get supplies regularly. I did request that he bring machine and for his next visit so we can assess it and adjusted accordingly. 12/06/2022 the patient is here for pulmonary sick visit. Apparently in this October the patient developed the flu. Subsequently after that started developing worsening chest tightness and wheezing. He then a 2nd course of prednisone. In addition to that he is also on a azithromycin. still complained of significant chest tightness and wheezing. Moderate severity. He has been using his nebulizer several times a day. Denies any fevers or chills. He did undergo a chest x-ray without any acute airspace disease. He also had a CT scan sometime in September 2022 demonstrating stable postoperative changes. He does have his CPAP although it has been difficult for him to use her why been sick. Hopefully can go back to using it regularly once he is feeling better. He is wondering if he could have a potential trigger for her respiratory status. Will have him undergo blood work to assess his neurological status and also to assess any allergy triggers. I did recommend he had blood work at least 1 week after completing the prednisone so it does not affect the results as much. In addition to that the patient has been having issues with neuropathy of the lower extremities. He will talk to his primary care further. He is looking for a neurologist. 01/12/2023 the patient is here for a pulmonary follow-up visit. He is feeling better from a respiratory status. He has been using his respiratory inhalers as prescribed. From all the coughing started developing some periumbilical discomfort. He felt a little fullness. 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 Now he is requiring surgery. At least now from a respiratory status the patient is doing better. Will go ahead and add singular to further optimize his respiratory therapy. The patient does have increased risk for perioperative pulmonary complications which include; atelectasis, hypoxia, bronchospasms and pneumonia. At this point the patient is medically optimized and may proceed with surgery. If he develops any worsening symptoms he is to call the office prior to his surgery. The patient has been trying to use CPAP. However, his mask is very uncomfortable. I did have a different mask for him that he could try, N20 medium. hopefully this mass does not irritate some itchy scalp like his other mask. If this mask works for him he will let me know so I can order 1 to his [employer]. Also personally reviewed his CT chest, with an area of density adjacent to his lobectomy. Will plan to repeat CT chest in 4-6 months to assess for reoccurrence. 04/06/2023 the patient is here for a pulmonary follow-up visit. Since we last spoke the patient was in the hospital after developing a CVA. The patient did have slurred speech. Denies any focal weakness or sensory loss. He had changes in his mood. The patient did go to [facility] where he did extensive testing. He is also following closely with Neurology. Apparently the time frame did not qualify him for tPA. The patient was placed on aspirin Plavix. Now he is only taking aspirin. She understands that he needs to uses CPAP to decrease his risk for cerebrovascular disease. He still struggles with. Although he does use more than 4 hours a night. In addition to that, he continues uses respiratory therapy. Seems to be working better for him. He is should be scheduled for CT scan in April but will push it out to May since he has a planned trip to [place]. 10/05/2023 the patient is here for a pulmonary follow-up visit. The patient overall is feeling better. He is recovering from the stroke. Still has some residual symptoms but minimal. The patient is still struggling with CPAP. He is trying to use it. Although under current settings is AHI still elevated at 10. he struggles with the CPAP set up. The patient did contemplate on the hypoglossal nerve stimulator. Although he is concerned. He also has a oral mandibular advancement device. The patient does try to use it as well. Again, he does use the CPAP more than 4 hours and even on high pressure settings the patient is still having significant elevation is in his AHI. In view of his recent stroke increased risk for cardiovascular and cerebrovascular disease he is failed CPAP and I will request he be exchanged to a BiPAP. The BiPAP will be more effective although will have to titrate the pressures accordingly. 02/08/2024 the patient is here for pulmonary follow-up visit. Overall the patient has been feeling okay. He is tolerating the BiPAP better than CPAP. BiPAP therapy has been affecting beneficial. He still struggles with sleep however. I did recommend he can try melatonin to see if it helps him sleep. Also is AHI continues to be elevated to 9. Therefore I will increase the BiPAP some from 14/10 to 15/12. He is going to call me in a couple weeks to see how the AHI is doing will continue to tailor the pressures accordingly to make sure that his AHI is below 5. He also needs to make sure the use it more than 4 hours a night. From a respiratory status is responding well to the current respiratory regimen. He has been trying to exercise more regularly. The patient is otherwise without any other complaints. 08/13/2024 the patient is here for pulmonary follow-up visit. Overall. He did finally get the Spiriva which has been effective. He continues on the Symbicort. Has a rescue inhaler but typically does not use it more than twice a week. No need for prednisone. The patient is not going to get the COVID vaccine as he believes that is related to why he ended up with a stroke. In the meantime he is going to the gym and he has lost significant amount of weight. Therefore will go ahead and repeat his home sleep study with hopes that he no longer needs Pap therapy. He struggles with the PAP therapy. Currently has a BiPAP. Hopefully with a sleep study in the weight loss and positional therapy shows that he no longer needs the PAP therapy. In addition to that he has a history lung cancer. His last CT scan that we have on record was from 08/10/2023 done at [facility]. Decide irregularity and recommended a short-term follow-up. Therefore will request a CT scan this time to further adjust the abnormalities in that area. 11/26/2024 the patient is here for a pulmonary follow-up visit. Overall the patient has been doing well. He continues uses respiratory therapy as prescribed. He did undergo CT scan of the chest done in September. Has not been officially read. I did personally reviewed and appears that his left lower lobe nodule appears to be stable measuring between 5.5-6 mm in size. Otherwise some emphysematous changes. He continues use the BiPAP. Having hard time with some mask. I did provide him a sample F 40 mask that he try and also requested from the [employer] since he tolerated it well. He will see if this provides better fit in order for him to tolerate the BiPAP further. Current settings are adequate 04/11 and he is using it with good benefit. The patient has been trying to use it more than 4 hours but sometimes he takes it off without realizing. Hopefully with the new mask he will not feel it as uncomfortable new tolerated better. And hopefully will provide a better seal to minimize the air leak. He also has a dental appliance. He is going to talk to his dentist. He is also good for him to have that as backup in case he needs to use that when he does not have the BiPAP available. He is also using his nebulizer at times. He rather have a Judy system and more from his [employer] company. 07/30/2025 the patient is here for pulmonary follow-up visit. Overall he is doing well. He continues use the BiPAP as prescribed. He is still struggles to use it the full duration of the night but he does fall asleep with it very well. He wakes up without it he is not sure. As far as sleep aids he does use herbal medications. He does not want to use any prescription medications at this time. From a respiratory status he continues uses inhalers without any issues. Sometimes he does have some wheezing but right now he is not limiting his activities of daily living. He is exercising regularly. He is going [facility] the [facility] they have a gym both in lung metal in his lung metal in his exercising regularly and feeling fit. He is also eating healthy. So overall he is in good health. Will follow-up in a year's time if he has any issues prior to this he can always call further recommendations. [facility] Medical History (Updated 10/06/23 @ 20:28 by Mirza Humphreys MD) Speech disturbance Cerebrovascular disease Transaminitis Snoring Back pain Left leg pain Peripheral neuropathy Aortic aneurysm Lung cancer DREW on CPAP Glaucoma Pulmonary nodules COPD (chronic obstructive pulmonary disease) Surgical History H/O shoulder surgery H/O hernia repair History of colon surgery History of lung surgery Social History Alcohol intake: never Patient Tobacco Use Status: Former Tobacco user Tobacco use type: Cigarette Years Smoked: 25 Years Review of Systems Const Reports daytime sleepiness, Denies night sweats and Reports weight loss Eyes Denies blurry vision, Denies exophthalmos and Denies change in vision ENT Denies change in voice, Denies lip swelling, Denies mouth pain, Reports nasal congestion, Reports nasal discharge and Denies tongue swelling Card Denies chest pain and Reports dyspnea on exertion Resp Reports cough, Reports dyspnea on exertion and Denies wheezing GI Reports no additional complaints Musc Denies no additional complaints Neuro Reports as per HPI, Denies Neuro-related abnormal movements and Denies focal weakness Psych Denies no additional complaints Gurinder/Lymph Denies easy bleeding and Denies lymphadenopathy Aller/Immun Denies lip swelling, Denies tongue swelling and Denies wheezing Physical Exam Vital Signs: Last Vital Signs Pulse 83 07/30/25 15:03 BP 98/64 07/30/25 15:03 Pulse Ox 93 07/30/25 15:03 Oxygen Delivery Method Room Air 07/30/25 15:03 BMI result Body Mass Index 27.4 Neck Neck: Yes normal visual inspection, Yes full ROM and Yes no lymphadenopathy Chest Chest palpation & inspection: normal inspection of the chest Resp Auscultation: clear to auscultation bilaterally Cardio Rate: regular rate Rhythm: regular rhythm Heart sounds: S1 normal heart sound present, S2 normal heart sound present and Murmur heart sound present GI Palpation (GI): Soft to palpation and nontender Auscultation: normal bowel sounds Skin General skin exam: rashes and/or lesions noted Assessment & Plan Assessment & Plan (1) COPD (chronic obstructive pulmonary disease): Code(s): J44.9 - Chronic obstructive pulmonary disease, unspecified Category: Medical Qualifiers: COPD type: chronic bronchitis Chronic bronchitis type: mixed simple and mucopurulent Qualified Code(s): J41.8 - Mixed simple and mucopurulent chronic bronchitis (2) Pulmonary nodules: Code(s): R91.8 - Other nonspecific abnormal finding of lung field Category: Medical Plan: largest 7mm LLL nodule (3) DREW on CPAP: Code(s): G47.33 - Obstructive sleep apnea (adult) (pediatric); Z99.89 - Dependence on other enabling machines and devices Category: Medical (4) Aortic aneurysm: Code(s): I71.9 - Aortic aneurysm of unspecified site, without rupture Category: Medical Qualifiers: Aortic location: unspecified Presence of rupture: without rupture Qualified Code(s): I71.9 - Aortic aneurysm of unspecified site, without rupture (5) Lung cancer: Code(s): C34.90 - Malignant neoplasm of unspecified part of unspecified bronchus or lung Category: Medical Qualifiers: Laterality: unspecified laterality Lung location: unspecified part of lung Qualified Code(s): C34.90 - Malignant neoplasm of unspecified part of unspecified bronchus or lung (6) Obstructive sleep apnea: Comment: severe degree of sleep apnea. The AHI was 31/hr and oxygen hayder was 76%. Code(s): G47.33 - Obstructive sleep apnea (adult) (pediatric) Category: Medical Plan continue Symbicort continue Spiriva LOYD as needed BIPAP 04/11 , FM repeat CT chest 09/2025 F/U 8-12 months Orders: Orders CT chest wo IV con 10/21/25 C34.90 - Malignant neoplasm of unspecified part of unspecified bronchus or lung, R91.8 - Other nonspecific abnormal finding of lung field Medications: Changed From Spiriva Respimat 2.5 mcg/actuation (tiotropium bromide) 2 puffs inhalation DAILY 3 ea 0RF NS To Spiriva Respimat 2.5 mcg/actuation (tiotropium bromide) 2 puffs inhalation DAILY 3 ea 3RF 90 days NS From budesonide-formoterol 160-4.5 mcg/actuation 2 puffs inhalation BID 30 days 1 ea 0RF NS To budesonide-formoterol 160-4.5 mcg/actuation 2 puffs inhalation BID 3 ea 3RF 90 days NS Coding Level of Care Code Est Pt Level 4 (86674) Complex EM visit Add On G2211 Diagnoses Mixed simple and mucopurulent chronic bronchitis J41.8 COPD type: chronic bronchitis Chronic bronchitis type: mixed simple and mucopurulent Pulmonary nodules R91.8 DREW on CPAP G47.33; Z99.89 Aortic aneurysm without rupture, unspecified portion of aorta I71.9 Aortic location: unspecified Presence of rupture: without rupture Malignant neoplasm of lung, unspecified laterality, unspecified part of lung C34.90 Laterality: unspecified laterality Lung location: unspecified part of lung Obstructive sleep apnea G47.33 Time Spent (min) 17
--- OUTSIDE RECORDS SUMMARY | 2025-07-30 17:18 | XMS_ITS | Clinical Summary ---
Author Organization [facility] Address [address] [place] [address] Phone Care Team Providers Care Project Management Manager Name Role Phone Jhon Collins MD Primary Care Provider [phone] Bryan Gimenez MD Unavailable Gustabo Harvey MD Unavailable [phone] Allergies No known active allergies Medications budesonide-formo terol (SYMBICORT) 160-4.5 mcg/actuation inhaler Inhale 2 puffs into the lungs 2 (two) times a day. Active albuterol 90 mcg/actuation inhaler Inhale 2 puffs into the lungs every 6 (six) hours as needed for wheezing. Active carboxymethylcel lulose-glycerin, PF, (REFRESH OPTIVE SENSITIVE) 0.5-0.9 % Dpet Place into each eye 3 (three) times a day as needed. Active aspirin 81 MG EC tablet Take 81 mg by mouth. 02/15/2023 Active lisinopril (PRINIVIL,ZESTRI L) 2.5 MG tablet Take 1 tablet by mouth every morning. 02/16/2023 Active atorvastatin (LIPITOR) 80 MG tablet Take 80 mg by mouth. 02/15/2023 Active dapagliflozin propanediol (FARXIGA) 5 mg tablet Take 10 mg by mouth daily. Active famotidine (PEPCID) 20 MG tablet Take 1 tablet by mouth 2 (two) times a day. 11/23/2023 Active tiotropium (SPIRIVA WITH HANDIHALER) 18 mcg inhalation capsule Inhale 18 mcg into the lungs. 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 Not on divina e 03/17/2023 Are you concerned about learning? Not on file 03/17/2023 No 03/17/2023 No 03/17/2023 Digital Access Answer Date Recorded No 04/18/2023 No 04/18/2023 Reliable internet access at home? Not on file 04/18/2023 Device with a working camera? Not on file Sex and Gender Information Value Date Recorded Sex Assigned at Not on file Legal Sex Male 7:11 PM EST Gender Identity Not on file Sexual Orientation Not on file Last Filed Vital Signs Vital Sign Reading Time Taken Comments Blood Pressure 122/83 07/05/2025 11:55 AM EDT Pulse 76 07/05/2025 11:55 AM EDT Temperature 36.5 C (97.7 F) 07/05/2025 11:55 AM EDT Respiratory Rate 18 07/05/2025 11:55 AM EDT Oxygen Saturation 95% 07/05/2025 11:55 AM EDT Inhaled Oxygen Concentration - - Weight 77 kg (169 lb 12.1 oz) 07/05/2025 11:55 A M EDT Height 170.9 cm (5' 7.3 ) 07/05/2025 11:55 AM ED T Body Mass Index 26.35 07/05/2025 11:55 AM EDT Plan of Treatment Upcoming Encounters Date Type Department Care Team (Late st Contact Info) Description 01/02/2026 9:30 AM EST Blood Draw Laboratory Services, [facility] [address] [place] [address] Gustabo Harvey MD [address] [place] [address] [email or web address] 01/02/2026 10:30 AM EST Office Visit Center for Lymphoma, Division of Hematologic On[facility], [facility] [address] [place] [address] Gustabo Harvey MD [address] [place] [address] [email or web address] Health Maintenance Due Date Last Done Comments LIPID PANEL 1959 DEPRESSION SCREENING 1971 SMOKING Hx and SMOKELESS TOBACCO SCREENING 1972 ZOSTER VACCINES (1 of 2) 1978 COLOGUARD 2004 COLONOSCOPY 2004 COLORECTAL CANCER SCREENING 2004 FIT TEST 2004 FOBT 2004 SIGMOIDOSCOPY 2004 VIRTUAL COLONOSCOPY 2004 Adult Td,Tdap Booster 03/17/2019 03/17/2009, 999 COVID-19 VACCINE ( season) 2024 09/01/2023, 09/01/2023, 08/19/2022, Additional history exists INFLUENZA VACCINE (#1) 2025 , 08/18/2023, 08/18/2022, Additional history exists CREATININE LEVEL 07/05/2026 07/05/2025, , 10/04/2024, Additional history exists POTASSIUM LEVEL 07/05/2026 07/05/2025, 12/22, 10/04/2024, Additional history exists SCREENING FOR DIABETES 07/05/2028 07/05/2025 HEPATITIS C SCREENING Completed 04/15/2022, 022 RSV VACCINE Completed 09/26/2023 PNEUMOCOCCAL VACCINES (50+ years) Completed 12/26/2023, 06/13/2008 HEPATITIS A VACCINES Aged Out No long er eligible based on patient's age to complete this topic HIB VACCINES Aged Out No longer eligi ble based on patient's age to complete this topic MENINGOCOCCAL VACCINES (ACWY) Aged Out No longer eligible based on patient's age to complete this topic MENINGOCOCCAL VACCINES (B) Aged Out N o longer eligible based on patient's age to complete this topic Medical Devices Not on file Procedures Procedure Name Priority Date/Time Associated Diagnosis Comments LDH Routine 07/05/2025 11:47 AM EDT Marginal zone lymphoma COMPREHENSIVE METABOLIC PANEL Routine 07/05/2025 11:47 AM EDT Marginal zone lymphoma HC BLOOD COUNT COMPLETE AUTO&AUTO DIFRNTL WBC Routine 07/05/2025 11:47 AM EDT Marginal zone lymphoma HEPATITIS C ANTIBODY WITH REFLEX TO HCV, RNA QUANTITATIVE REAL-TIME PCR Routine 04/15/2022 12:45 PM EDT Marginal zone lymphoma from Last 3 Months or Most Recently Relevant to Health Maintenance Results * LDH (07/05/2025 11:47 AM EDT) LDH 217 135 - 225 U/L [facility] LIC# [id number] Blood 07/05/2025 11:4 7 AM EDT 07/05/2025 11:59 AM EDT us Gustabo Harvey MD LAB BLOOD ORDERABLES Final Re sult [facility] LIC# [id number] [address] [place] [address] * (ABNORMAL) Comprehensive metabolic panel (07/05/2025 11:47 AM EDT) SODIUM 140 136 - 145 mmol/L [facility] LIC# [id number] POTASSIUM 4.0 3.4 - 5.1 mmol/L [facility] LIC# [id number] CHLORIDE 103 98 - 107 mmol/L [facility] LIC# [id number] CO2 24 22 - 31 mmol/L [facility] LIC# [id number] BUN 18 6 - 23 mg/dL [facility] LIC# [id number] CREATININE 1.22(H) 0.50 - 1.20 mg/dL [facility] LIC# [id number] GLUCOSE 100 70 - 100 mg/dL [facility] LIC# [id number] ALBUMIN 4.5 3.5 - 5.2 g/dL [facility] LIC# [id number] TOTAL PROTEIN 7.3 6.4 - 8.3 g/dL [facility] LIC# [id number] CALCIUM 9.5 8.8 - 10.7 mg/dL [facility] LIC# [id number] ALKALINE PHOSPHATASE 83 40 - 129 U/L [facility] LIC# [id number] TOTAL BILIRUBIN 0.4 0.2 - 1.2 mg/dL [facility] LIC# [id number] AST 34 <41 U/L [facility] LIC# [id number] ALT 37 <42 U/L [facility] LIC# [id number] GLOBULIN 2.8 2.3 - 4.2 g/dL [facility] LIC# [id number] EGFR 65 >59 mL/min/1.7 3m2 [facility] LIC# [id number] Comment:Estimated glomerular filtration rate calculated using the CKD-EPI refit equation. ANION GAP 13 7 - 17 mmol/L [facility] LIC# [id number] Blood 07/05/2025 11:4 7 AM EDT 07/05/2025 11:59 AM EDT us Gustabo Harvey MD LAB BLOOD ORDERABLES Final Re sult [facility] LIC# [id number] [address] [place] [address] * (ABNORMAL) CBC and differential (07/05/2025 11:47 AM EDT) WBC 7.98 4.00 - 10.00 K/uL [facility] LIC# [id number] RBC 5.43 4.50 - 6.40 M/uL [facility] LIC# [id number] HGB 16.1 13.5 - 18.0 g/dL [facility] LIC# [id number] HCT 49.3 40.0 - 54.0 % [facility] LIC# [id number] PLT 252 150 - 450 K/uL [facility] LIC# [id number] MCV 90.8 80.0 - 100.0 fL [facility] LIC# [id number] MCH 29.7 27.0 - 32.0 pg [facility] LIC# [id number] MCHC 32.7 32.0 - 36.0 g/dL [facility] LIC# [id number] RDW 14.6(H) 11.5 - 14.5 % [facility] LIC# [id number] MPV 10.1 8.4 - 12.0 fL [facility] LIC# [id number] NRBC 0.00 0 /100 WBCs [facility] LIC# [id number] ABSOLUTE NRBC 0.00 0 K/uL [facility] LIC# [id number] DIFF METHOD Auto [facility] LIC# [id number] NEUTS 74.7 48.0 - 76.0 % [facility] LIC# [id number] LYMPHS 11.3(L) 18.0 - 41.0 % [facility] LIC# [id number] MONOS 10.9 4.0 - 11.0 % [facility] LIC# [id number] EOS 1.3 0.0 - 5.0 % [facility] LIC# [id number] BASOS 0.5 0.0 - 1.5 % [facility] LIC# [id number] % IMMATURE GRANS 1.3(H) 0.0 - 1.0 % [facility] LIC# [id number] ABSOLUTE NEUTS 5.97 1.92 - 7.60 K/uL [facility] LIC# [id number] ABSOLUTE LYMPHS 0.90 0.72 - 4.10 K/uL [facility] LIC# [id number] ABSOLUTE MONOS 0.87 0.16 - 1.10 K/uL [facility] LIC# [id number] ABSOLUTE EOS 0.10 0.00 - 0.50 K/uL [facility] LIC# [id number] ABSOLUTE BASOS 0.04 0.00 - 0.15 K/uL [facility] LIC# [id number] ABS IMMATURE GRANS 0.10 0.00 - 0.10 K/uL [facility] LIC# [id number] Blood 07/05/2025 11:4 7 AM EDT 07/05/2025 11:59 AM EDT us Gustabo Harvey MD LAB BLOOD ORDERABLES Final Re sult Performing Organization Address [facility] Co de Phone Number [facility] LIC# [id number] [address] [place] [address] * (ABNORMAL) Hepatitis C Antibody with Reflex to HCV, RNA quantitative Real-Time PCR (04/15/2022 12:45 PM EDT) HCV Ab Reactive(A ) Negative [facility] Comment: (NOTE) Supplemental testing for HCV RNA is ordered to rule out active HCV infection. Fhayzc-tu-mitiod ratio is >=8.00. Blood 04/15/2022 12:4 5 PM EDT 04/15/2022 12:49 PM EDT us Gustabo Harvey MD LAB BLOOD ORDERABLES Final sult Performing Organization Address City/State/[facility] Co de Phone Number [facility] [address] [place] [address] from Last 3 Months or Most Recently Relevant to Health Maintenance Insurance BLUE CROSS OUT OF STATE PPO MEDICARE A BLUE [place]OSS OUT OF STATE PPO MEDICARE A [facility] A BLUE CROSS OUT OF STATE PPO MEDICARE [place] [address] [place] [id number] [facility]OSS OUT [facility] A BLUE CROSS OUT OF STATE PPO MEDICARE A [address] [place], [place] [address]O MEDICARE A [facility] PPO MEDICARE A Care Teams Project Management Manager Relationship Specialty Start Date End Date Jhon Collins MD [address] [place] [phone] [email or web address] PCP - General Internal Medicine 03/19/22 Bryan Gimenez MD [address] [place] [address] [place] [address] Referring Physician Hematology and Oncology 03/19/22 Gustabo Harvey MD [address] [address] [email or web address] Primary Oncologist Hematology and Oncology 04/15/22 Additional Source Comments The information contained in this document represents components of the legal health record. It is not the complete legal health record.[facility]
--- OUTSIDE RECORDS SUMMARY | 2025-07-30 17:18 | XMS_ITS | Encounter Summary ---
Author Organization [facility] Address [address] [place] [address] Phone Care Team Providers Care Wheel Polisher Name Role Phone Pcp, Unknown Primary Care Provider Unavailabl Jhon Goel MD Primary Care Provider [phone] Bryan Gimenez MD Unavailable [phone] Gustabo Harvey MD Unavailable Encounter Details Date Type Department Care Team (Late st Contact Info) Description 02/04/2022 Procedure Pass OR Admitting Dept - Virtual Department [address] [place] [id number] Social History Tobacco Use Types Packs/Day Years Used Date Smoking Tobacco: Never Assessed Sex and Gender Information Value Date Recorded Sex Assigned at Not on file Legal Sex Male 7:11 PM EST Gender Identity Not on file Sexual Orientation Not on file documented as of this encounter Plan of Treatment Upcoming Encounters Date Type Department Care Team (Late st Contact Info) Description 01/02/2026 9:30 AM EST Blood Draw Laboratory Services, [facility] [place] [address] [facility], 2nd [place] [address] Gustabo Harvey MD [facility] [address] [address] [email or web address] 01/02/2026 10:30 AM EST Office Visit Center for Lymphoma, Division of Hematologic Oncology, [facility] [place] [address] [facility], [address]th [place] [address] Gustabo Harvey MD [address] [place] [address] [email or web address] documented as of this encounter Visit Diagnoses Not on filedocumented in this encounter Care Teams Wheel Polisher Relationship Specialty Start Date End Date Pcp, Unknown PCP - General 02/03/22 03/18/22 Jhon Collins MD [address] [address] [email or web address] PCP - General Internal Medicine 03/19/22 Bryan Gimenez MD [address] [facility] [place] [address] Referring Physician Hematology and Oncology 03/19/22 Gustabo Hravey MD [address] [place] [id number] [email or web address] Primary Oncologist Hematology and Oncology 04/15/22 documented as of this encounter Additional Source Comments The information contained in this document represents components of the legal health record. It is not the complete legal health record.[facility]
--- OUTSIDE RECORDS SUMMARY | 2025-07-30 17:18 | XMS_ITS | Clinical Summary ---
Author Organization [facility] [address] [facility] Address [address] [place] [address] Phone Care Team Providers Care Vat Operator Name Role Phone Jhon Collins MD Primary Care Provider [phone] Allergies Active Allergy Reactions Criticality Noted Date Comments Amoxicillin 06/05/2025 Ciprofloxacin 06/05/2025 Doxycycline 06/05/2025 Rash and joint pain Levofloxacin 06/05/2025 Metformin 06/05/2025 Hiccups Medications atorvastatin (LIPITOR) 80 mg tablet Take 1 tablet (80 mg total) by mouth at bedtime. Active budesonide-formo teroL (SYMBICORT) 160-4.5 mcg/actuation inhaler Inhale 2 puffs by mouth 2 (two) times a day. Rinse mouth with water after use to reduce aftertaste and incidence of candidiasis. Do not swallow. Active albuterol HFA (PROAIR HFA ; PROVENTIL HFA ; VENTOLIN HFA) 90 mcg/actuation inhaler Inhale 2 puffs by mouth every 6 (six) hours if needed for wheezing. Active famotidine (PEPCID) 20 mg tablet Take by mouth. Activ e aspirin 81 mg EC tablet Take 1 tablet (81 mg total) by mouth 1 (one) time each day. Active lisinopriL (PRINIVIL,ZESTRI L) 2.5 mg tablet Take 1 tablet (2.5 mg total) by mouth 1 (one) time each day. Active dapagliflozin propanediol (Farxiga) 10 mg tablet Take 1 tablet (10 mg total) by mouth 1 (one) time each day. Active peg 400-propylene glycol, PF, (Systane Ultra, PF,) 0.4-0.3 % drops Administer into affected eye(s). Active omeprazole (PRILOSEC) 20 mg tablet,delayed release (DR/EC) Take 1 tablet (20 mg total) by mouth 1 (one) time each day. for 30 days 5 Active Spiriva Respimat 2.5 mcg/actuation inhalation spray Inhale 2 puffs by mouth 1 (one) time each day. 5 Active Active Problems Problem Noted Date Diagnosed Date Hepatitis C 11/21/1992 Allergic rhinitis Asthma Diverticulitis ED (erectile dysfunction) Kidney cysts Left hip pain Leukocytoclastic vasculitis ([facility] V24, [facility]/ C V28) MGUS (monoclonal gammopathy of unknown significa nce) Neuropathy Sleep apnea Stroke (cerebrum) ([facility] V24, [facility] V28) Encounters Date Type Department Care Team Description 07/10/2025 Telephone Gastroenterology - [address] [place] [address] [phone] Fani Linda PA 06/06/2025 11:00 AM EDT Consult Gastroenterology - [address] [place] [phone] Fani Linda PA Gastroesophageal reflux disease, unspecified whether esophagitis present (Primary Dx) 05/30/2025 Telephone Gastroenterology - [address] [place] [phone] Fani Linda PA from Last 3 Months Surgical History Surgery Date Site/Laterality Comments COLECTOMY PARTIAL / TOTAL 11/21/2018 - 11/20/2019 secondary to diverticulitis Medical History Medical History Date Comments Hepatitis C 1992 Leukocytoclastic vasculitis ([facility] V24, [facility]/ C V28) Allergic rhinitis Kidney cysts Left hip pain MGUS (monoclonal gammopathy of unknown significa nce) Neuropathy Sleep apnea Diverticulitis Stroke (cerebrum) ([facility] V24, [facility] V28) ED (erectile dysfunction) Asthma Diverticulitis Family History Medical History Relation Name Comments Colon cancer Neg Hx Colonic polyp Neg Hx Social History Tobacco Use Types Packs/Day Years Used Date Smoking Tobacco: Former Cigarettes Smokeless Tobacco: Former Tobacco Cessation:Counseling Given: Not Answered Alcohol Use Standard Drinks/Week Comments Never 0 (1 standard drink = 0.6 oz pur e alcohol) Sex and Gender Information Value Date Recorded Sex Assigned at Not on file Legal Sex Male 4:41 AM EST Gender Identity Not on file Sexual Orientation Not on file Obstetrics History Last Filed Vital Signs Vital Sign Reading Time Taken Comments Blood Pressure - - Pulse - - Temperature - - Respiratory Rate - - Oxygen Saturation - - Inhaled Oxygen Concentration - - Weight 77.1 kg (170 lb) 06/06/2025 10:31 AM EDT Height 170.2 cm (5' 7 ) 06/06/2025 10:31 AM EDT Body Mass Index 26.63 06/06/2025 10:31 AM EDT Plan of Treatment Health Maintenance Due Date Last Done Comments Diabetes: Annual Foot Exam 1969 Diabetes: Annual Retina Eye Exam 1969 Hepatitis A Vaccines (1 of 2 - Risk 2-dose series) 1978 DTaP,Tdap,and Td Vaccines (3 - Td or Tdap) 03/17/2019 03/17/2009, 1999 Hepatitis B Vaccines (1 of 3 - Risk 3-dose series) 2019 Depression Screening 11/21/2024 Abdominal Aortic Aneurysm (AAA) Screen 05/28/2025 Cholesterol Screening (Lipid Panel) 05/28/2025 Colorectal Cancer Screening: Colonoscopy 05/28/2025 Falls Risk Assessment 05/28/2025 Social Influencers of Health Screening 05/28/2025 Diabetes: Annual Urine Albumin-Creatinine Ratio (uACR) 06/06/2025 Diabetes: Blood Sugar Control Test (HGBA1C) 06/06/2025 COVID-19 Vaccine ( season) 2025 09/01/2023, 08/19/2022, 03/18/2022, Additional history exists Influenza Vaccine (#1) 2025 , 08/18/2023, 08/18/2022, Additional history exists Diabetes: Annual GFR (Glomerular Filtration Rate) 01/03/2026 01/03/2025, 10/04/2024, 05/31/2024, Additional history exists Zoster Vaccines Completed 09/24/2019, 07/24/2019 Hepatitis C Screening Completed 04/15/2022 RSV Immunization Adult Patients Completed 09/26/2023 Pneumococcal Vaccine: 50+ Years Completed 12/26/2023, 06/13/2008 HIB Vaccines Aged Out No longer eligi ble based on patient's age to complete this topic HPV Vaccines Aged Out No longer eligi ble based on patient's age to complete this topic IPV Vaccines Aged Out No longer eligi ble based on patient's age to complete this topic MMR Vaccines Aged Out No longer eligi ble based on patient's age to complete this topic Meningococcal ACWY Vaccine Aged Out N o longer eligible based on patient's age to complete this topic Meningococcal B Vaccine Aged Out No l onger eligible based on patient's age to complete this topic RSV Immunization Patients Under 20 months Aged Out No longer eligible based on patient's age to complete this topic Varicella Vaccines Aged Out No longer eligible based on patient's age to complete this topic [facility] [place] [id number] [facility]) MEDICARE Care Teams Vat Operator Relationship Specialty Start Date End Date Jhon Collins MD [address] [place] [address] PCP - General Internal Medicine 11/22/18
== END 2025-07-30 15:39 | disposition home or self-care (01) ==
PROVIDERS: PCP Internal Medicine; Visit Provider Hospitalist
DX: J41.8 Mixed simple and mucopurulent chronic bronchitis (principal); R91.8 Other nonspecific abnormal finding of lung field; G47.33 Obstructive sleep apnea (adult) (pediatric); Z99.89 Dependence on other enabling machines and devices; I71.9 Aortic aneurysm of unspecified site, without rupture; C34.90 Malignant neoplasm of unspecified part of unspecified bronchus or lung
CPT/HCPCS: 99214

== ENCOUNTER 2025-11-05 15:22 | Outpatient (REF) | payer BC, SELFPAY ==
--- NOTE | ~2025-11-05 | CT_ITS ---
CLINICAL HISTORY: C34.90 - Malignant neoplasm of unspecified part of unspecified bronchus ... Exam: Nonenhanced CT chest with multiplanar reformats. Comparison: None. Findings: Lungs are free of focal consolidation. There are small left lower lobe nodules measuring 6 mm (5; 126, 3 mm (5; 128), and 3 mm (5; 129). No other pulmonary nodules or parenchymal lesions. Centrilobular and paraseptal emphysematous changes are present. Airways are patent. No pneumothorax. There is a small lung hernia involving right lung interposed between the 4th and 5th anterolateral ribs (for example, 5; 67). No mediastinal or hilar masses or adenopathy. No pleural or pericardial effusions. Images below the diaphragms reveal no acute abnormalities. Partially imaged bilateral renal cysts are present, measuring up to 8.9 cm on the right (4; 192, 1 Hounsfield unit density), and 3.3 cm on left (4; 192, 4 Hounsfield units). Osseous structures reveal no destructive osseous lesions. Mild anterior compression deformity at T6 with loss of roughly 20% vertebral body height anteriorly (7; 86) appears likely remote with no definable fracture lines or paravertebral stranding. Impression: 1. Small left lower lobe pulmonary nodules measuring up to 6 mm. Given history of neoplasm, consider comparison with prior exams or short-term surveillance follow-up CT (3-6 months). This document has been electronically signed by: Alvin Velez MD on 11/06/2025 20:53:39
--- OUTSIDE RECORDS SUMMARY | 2025-11-05 19:36 | XMS_ITS ---
Author Name [facility] Organization Unknown Encounters Encounter Type Encounter Reason Primary Diagnosis Location Date Ambulatory [facility] 09/10/2025 Ambulatory Family history of ischemic heart disease and other diseases of the circulatory system Family history of ischemic heart disease and other diseases of the circulatory system [facility] 08/30/2025 Ambulatory TYPE 2 UNCONTROLLED TYPE 2 UNCONTROLLED P [facility] 08/07/2025 Care Team Organization Name Specialty Phone Email Start Date End Da te [facility] Primary Care 08/31/2025 [facility] Primary Care 08/30/2025 [facility] directory,Not Primary Care 08/06/2025 [facility] Not [facility] Primary [facility] 08/06/2025
--- OUTSIDE RECORDS SUMMARY | 2025-11-05 19:36 | XMS_ITS | Clinical Summary ---
Author Organization [facility] Address [address] [place] [address] Phone Care Team Providers Care Physician Relations Specialist Name Role Phone Jhon Collins MD Primary Care Provider [phone] Bryan Gimenez MD Unavailable [phone] Gustabo Harvey MD Unavailable [phone] Allergies No known active allergies Medications budesonide-formo [...] 18 mcg into the lungs. 02/13/2023 Active Social History Tobacco Use Types Packs/Day Years [...] 9:30 AM EST Blood Draw Laboratory Services, [address], [address] [place] [address] Gustabo Harvey MD [address] [address] [email or web address] 01/02/2026 10:30 AM EST Office Visit [facility], Division of Hematologic Oncology, [address], [address] [place] [address] Gustabo Harvey MD [address] [address] [email or web address] Health Maintenance Due Date Last Done Comments LIPID PANEL 1959 DEPRESSION SCREENING 1971 SMOKING Hx and SMOKELESS TOBACCO SCREENING 1972 ZOSTER VACCINES (1 of 2) 1978 COLOGUARD 2004 COLONOSCOPY 2004 COLORECTAL CANCER SCREENING 2004 FIT TEST 2004 FOBT 2004 SIGMOIDOSCOPY 2004 VIRTUAL COLONOSCOPY 2004 Adult Td,Tdap Booster 03/17/2019 03/17/2009, 999 INFLUENZA VACCINE (#1) 2025 , 08/18/2023, 08/18/2022, Additional history exists COVID-19 VACCINE (2024- season) 2025 09/01/2023, 09/01/2023, 08/19/2022, Additional history exists CREATININE LEVEL 07/05/2026 07/05/2025, , 10/04/2024, Additional history exists POTASSIUM LEVEL 07/05/2026 07/05/2025, 12/22, 10/04/2024, Additional history exists SCREENING FOR DIABETES 07/05/2028 07/05/2025 HEPATITIS C SCREENING Completed 04/15/2022 , 04/15/2022, 04/15/2022, Additional history exists RSV VACCINE Completed 09/26/2023 PNEUMOCOCCAL VACCINES (50+ [...] Procedure Name Priority Date/Time Associated Diagnosis Comments COMPREHENSIVE METABOLIC PANEL (CMP) Routine 07/05/2025 11:47 AM EDT Marginal zone lymphoma HEPATITIS C ANTIBODY WITH REFLEX TO HCV, RNA QUANTITATIVE REAL-TIME PCR Routine 04/15/2022 12:45 PM EDT Marginal zone lymphoma from Last 3 Months or Most Recently Relevant to Health Maintenance Results * (ABNORMAL) Comprehensive metabolic panel (07/05/2025 11:47 AM EDT) SODIUM 140 136 - 145 mmol/L [facility] LIC# [id number] POTASSIUM 4.0 3.4 - 5.1 mmol/L [facility] LIC# [id number] CHLORIDE 103 98 - 107 mmol/L [facility] LIC# [id number] CO2 24 22 - 31 mmol/L [facility] LIC# [id number] BUN 18 6 - 23 mg/dL [facility] LIC# [id number] CREATININE 1.22(H) 0.50 - 1.20 mg/dL [facility] LIC# [id number] GLUCOSE 100 70 - 100 mg/dL [facility] LIC# [id number] ALBUMIN 4.5 3.5 - 5.2 g/dL [facility] LIC# [id number] TOTAL PROTEIN 7.3 6.4 - 8.3 g/dL [facility] LIC# [id number] CALCIUM 9.5 8.8 - 10.7 mg/dL [facility] LIC# [id number] ALKALINE PHOSPHATASE 83 40 - 129 U/L [facility] LIC# [id number] TOTAL BILIRUBIN 0.4 0.2 - 1.2 mg/dL [facility] LIC# [id number] AST 34 <41 U/L [facility] LIC# [id number] ALT 37 <42 U/L [facility] LIC# [id number] GLOBULIN 2.8 2.3 - 4.2 g/dL [facility] LIC# [id number] EGFR 65 >59 mL/min/1.7 3m2 [facility] LIC# [id number] Comment:Estimated glomerular filtration rate calculated using the CKD-EPI refit equation. ANION GAP 13 7 - 17 mmol/L [facility] LIC# [id number] Blood 07/05/2025 11:4 7 AM EDT 07/05/2025 11:59 AM EDT Gustbao Harvey MD LAB BLOOD BKR ORDERABLES Denita l Result [facility] LIC# [id number] [address] [place] [address] * (ABNORMAL) Hepatitis C Antibody with Reflex to HCV, RNA quantitative Real-Time PCR (04/15/2022 12:45 PM EDT) HCV Ab Reactive(A ) Negative [facility] Comment: (NOTE) Supplemental testing for HCV RNA is ordered to rule out active HCV infection. Fkjhec-qu-cbecjf ratio is >=8.00. Blood 04/15/2022 12:4 5 PM EDT 04/15/2022 12:49 PM EDT Gustabo Harvey MD LAB BLOOD BKR ORDERABLES Denita l Result [facility] [address] [place] [address] from Last 3 Months or Most Recently Relevant to Health Maintenance Insurance [facility] OUT OF STATE PPO MEDICARE A [facility] PPO MEDICARE A [employer] OUT OF STATE O MEDICARE A [facility] OUT OF STATE O MEDICARE A [facility] PPO MEDICARE A [facility] A [facility] OUT OF STATE PPO MEDICARE A MEDICARE A [facility] OUT OF STATE PPO MEDICARE A Care Teams Physician Relations Specialist Relationship Specialty Start Date End Date Jhon Collins MD [address] [address] [email or web address] PCP - General Internal Medicine 03/19/22 Bryan Gimenez MD [address] [facility] [place] [address] [email or web address] Referring Physician Hematology and Oncology 03/19/[address] [facility] [address] [address] [email or web address] Primary Oncologist Hematology and Oncology 04/15/22 Additional Source Comments The information contained in this document represents components of the legal health record. It is not the complete legal health record.[facility]
--- OUTSIDE RECORDS SUMMARY | 2025-11-05 19:36 | XMS_ITS | Encounter Summary ---
Author Organization [facility] Address [address] [place] [address] Phone Care Team Providers Care Maintenance Foreman Name Role Phone Pcp, Unknown Primary Care Provider Unavailabl Jhon Goel MD Primary Care Provider [phone] Bryan Gimenez MD Unavailable [phone] Gustabo Harvey MD Unavailable Encounter Details Date Type Department Care Team (Late st Contact Info) Description 02/04/2022 Procedure Pass OR Admitting Dept - Virtual Department [address] [place] [phone] Social History Tobacco Use Types Packs/Day Years [...] 9:30 AM EST Blood Draw Laboratory Services, [facility] [address] [facility], 2nd [place] [address] Gustabo Harvey MD [facility] [address] [address] [email or web address] 01/02/2026 10:30 AM EST Office Visit [facility], Division of Hematologic Oncology, [facility] [address] [facility], [address] [place] [address] Gustabo Harvey MD [address] [place] [address] [place] [address] [email or web address] documented as of this encounter Visit Diagnoses Not on filedocumented in this encounter Care Teams Maintenance Foreman Relationship Specialty Start Date End Date Pcp, Unknown PCP - General 02/03/22 03/18/22 Jhon Collisn MD [address] [address] [email or web address] PCP - General Internal Medicine 03/19/22 Bryan Gimenez MD [address] [facility] [place] [address] [email or web address] Referring Physician Hematology and Oncology 03/19/22 Gustabo Harvey MD [address] [place] [address] [email or web address] Primary Oncologist Hematology and Oncology 04/15/22 documented as of this encounter Additional Source Comments The information contained in this document represents components of the legal health record. It is not the complete legal health record.[facility]
--- OUTSIDE RECORDS SUMMARY | 2025-11-05 19:36 | XMS_ITS | Data Portability ---
Author Organization [facility] [address] Address [address] [place] [address] Care Team Providers Care Electric Meter Tester Shop Name Role Phone ANDREA SWEENEY Primary Care Provider Assessment No assessment recorded. Plan of Treatment Reminders Order Date Submit Date Provider Last Modified By Organization Details Last Modified Time Details Appointments None recorded. Lab rapid SARS CoV 2 Ag, QL IA, respiratory specimen 2022 023 [facility] [address], [address] [place], [address], 16:19:53 rapid flu (A+B) 2022 023 [email or web address] [facility] [address], [address] [place], [address], 16:19:53 Referral None recorded. Procedures None recorded. Surgeries None recorded. Imaging None recorded. Medication Orders ipratropium bromide 0.02 % solution for inhalation 2022 023 [id number], [address] , [place], [address], 16:19:56 Patient TargetsNo targets recorded. Patient Instructions Encounter Date Encounter Id Patient Instructions Last Modified By Organization Details Last Modified Time 12/13/2022 [id number] coronavirus (covid-19): care instructions [email or web address] Not available 12/13/2022 16:19:53 Coronavirus (COVID-19) in Children: Care Instructions [email or web address] Not available 12/13/2022 16:19:53 cough: care instructions [email or web address] Not available 12/13/2022 16:19:53 Acute bronchitis is [...] Pain 3. Wheezing 4. Coughing up Blood [email or web address] Not available 12/13/2022 16:19:48 Reason for Referral None Reported. Results Created Date Observation Date Name Description Value Unit Range Abnormal Flag Note LastModifiedBy Organization Detail LastModifiedTime 12/13/1912/13/2022 rapid flu (A+B) Unknown Analyte Normal = Negati ve Not Available [address] [place], [address], 12/13/2022 14:54:38 12/13/1912/13/2022 rapid flu (A+B) Unknown Analyte Normal = Negati ve Not Available [address] [place], [address], 12/13/2022 14:54:38 12/13/19 23 12/13/2022 rapid flu (A+B) Unknown Analyte negati ve Not Available [address] [place], [address], 12/13/2022 14:54:38 12/13/1912/13/2022 rapid flu (A+B) Unknown Analyte negati ve Not Available [address] [place], [address], 12/13/2022 14:54:38 12/13/19 23 12/13/2022 rapid SARS CoV 2 Ag, QL IA, respi rator y speci men Unknown Analyte Normal =Negat anitra Not Available [address] [place], [address], 12/13/2022 14:48:36 12/13/1912/13/2022 rapid SARS CoV 2 Ag, QL IA, respi rator y speci men Unknown Analyte negati ve Not Available [address] [place], [address], 12/13/2022 14:48:36 Result Notes None recorded. Problems Name Problem SNOMED Code Status Onset Date Resolution Date Notes Provider Name and Address Organization Details Recorded Time Asthma 387978907 Active 023 SALIMA Chester - [facility] 12/13/2022 14:49:56 Problem Notes None recorded. Medical Equipment None Reported. Allergies Allergen ID Allergen Name Allergen Category Reaction Reaction Severity Criticality Documentation Date Start Date Code Code System Note Provider Name and Address Organization Details Recorded Time 442536 Symbicort medicatio n Not available Not available Not available 12/13/2022 37274 8 RxNorm SALIMA Chester - [facility] 3 14:49:36 Medications Name [...] Not Johanny ilable Not Available Zac Estrada [facility] spacer DIRECTED active Not Available Not Available [...] height Body mass index (BMI) Body weight Pain severity - 0-10 verbal numeric rating [Score] - Reported Oxygen saturation Heart rate Respiratory rate Body temperature Systolic And Diastolic Provider Name and Address Organization Details Last Updated DateTime 3 170.18 cm 27.9 kg/m2 71998.4 4 g 0 96 % 100 /min 18 /min 98.5 [degF] 140/86 mm[Hg] SUJIT DUBOIS PA - [facility] 3 14:53:03 Social History Question Answer Notes LastModified by Organizat ion Details LastModified Time Tobacco Smoking Status Former Smoker SUJIT riley, [place] - [facility] 12/13/2022 14:50:14 When Did You Quit Smoking? 16+yearssinc elastcigaret te Information not available 12/13/2022 Have You Recently Traveled Abroad? No Information not available 12/13/2022 Sex: Unknown Functional Status Question Answer Note LastModified by Organizat ion Details LastModified Time Do you use any illicit or recreational drugs? No Information not available 12/13/2022 Do you or have you ever used any other forms of tobacco or nicotine? No Information not available 12/13/2022 What is your level of alcohol consumption? None Information not available 12/13/2022 Mental Status None recorded. Family History Relationship [...] 30 mcg/0.3 mL dose 11/25/2021 completed SUJIT MACHNACZ null, [facility] - [facility] [...] Diagnosis SNOMED-CT Code Diagnosis ICD10 Code Diagnosis IMO Codes Diagnosis Note [id number] [facility] CHAMBERS [address] [address] [facility] [address] 12/13/2022 14:11:51 12/13/2022 16:22:38 Acute bronchitis 46698718 J20.9 Follow up with your Pulmonolog ist next weekContin ue the Prednisone and Inhaler I am going to add this other medication for your nebulizer. Health Concerns Section Related Observation LastModified by Organization Detai ls LastModified Time None Recorded Concern Status LastModified by Organization Details LastModified Time None Recorded Advance Directives Directive None Recorded Payers Insurance Date Sequence Insurance Name Policy Number Policy Mckenzie Covered Member ID Mckenzie Member ID Guarantor Name 12/13/2022 1 [place] [id number] Kurtis Navarro [id number] Danilo Lairdbins Notes Date Note Type Note Provider Name and Address Organization Details Recorded Time 12/13/19 23 text/htm l COVID-19 SymptomsReported by Patient CoughReported by PatientHPIFor quality, patient reportsproductive coughanddry. For source of patient information, patient reportsinformation obtained from patientandpatient arrived at urgent care ambulatory. For severity, patient reportsmoderate. For duration, patient reportschronicandsymptoms lasting over 2 weeks. For timing, patient reportssudden. For associated symptoms, patient reportsno fever,no chills,no chest pain,no heartburn,no nausea,no vomiting,no edema,no agitation,no wheezing, andno post nasal drip.The patient presents mainly for COVID and Influenza testing. Has had a cough for over 1 month. Has been seen by his billet recorder for who has tweeked is medications. On [...] pain. SALIMA CHAMBERS [address] [place], [address], [place] - [facility] 12/13/2022 22:08:08
--- OUTSIDE RECORDS SUMMARY | 2025-11-05 19:36 | XMS_ITS | Clinical Summary ---
Author Organization [facility] [address] [facility] Address [address] [place] [address] Phone Care Team Providers Care Tower Equipment Installer Name Role Phone Jhon Collins MD Primary Care Provider [phone] Allergies Active Allergy Reactions Criticality Noted Date [...] Kidney cysts Left hip pain Leukocytoclastic vasculitis MGUS (monoclonal gammopathy of unknown significa nce) Neuropathy Sleep apnea Stroke (cerebrum) Encounters Date Type Department Care Team Description 08/30/2025 3:00 PM EDT Ancillary Procedure [facility] - [address] [address] Family history of hypertrophic cardiomyopathy from Last 3 Months Surgical History Surgery Date Site/Laterality Comments COLECTOMY PARTIAL / TOTAL 11/21/2018 - 11/20/2019 secondary to diverticulitis Medical History Medical History Date Comments Hepatitis C 1992 Leukocytoclastic vasculitis (CMS/HCC V24, CMS/ C V28) Allergic rhinitis Kidney cysts Left hip pain MGUS (monoclonal gammopathy of unknown significa nce) Neuropathy Sleep apnea Diverticulitis Stroke (cerebrum) (CMS/HCC V24, [facility]/HCC V28) ED (erectile dysfunction) Asthma Diverticulitis Family [...] Health Maintenance Due Date Last Done Comments Colorectal Cancer Screening: Colonoscopy 1959 Diabetes: Annual Foot Exam 1969 Diabetes: Annual Retina Eye Exam 1969 Hepatitis A Vaccines (1 of 2 - Risk 2-dose series) 1978 Hepatitis B Vaccines (1 of 3 - Risk 3-dose series) 2019 Depression Screening 11/21/2024 Abdominal Aortic Aneurysm (AAA) Screen 05/28/2025 Cholesterol Screening (Lipid Panel) 05/28/2025 Falls Risk Assessment 05/28/2025 Social Influencers of Health Screening 05/28/2025 Diabetes: Annual Urine Albumin-Creatinine Ratio (uACR) 06/06/2025 Diabetes: Blood Sugar Control Test (HGBA1C) 06/06/2025 COVID-19 Vaccine ( season) 2025 09/01/2023, 08/19/2022, 03/18/2022, Additional history exists Influenza Vaccine (#1) 2025 , 08/18/2023, 08/18/2022, Additional history exists DTaP,Tdap,and Td Vaccines (4 - Td or Tdap) 06/15/2026 06/15/2016, 03/17/2009, 1999 Diabetes: Annual GFR (Glomerular Filtration Rate) 07/05/2026 07/05/2025, 01/03/2025, 10/04/2024, Additional history exists Zoster Vaccines Completed 09/24/2019, 07/24/2019 Hepatitis C Screening Completed 04/15/2022 RSV Immunization Adult Patients Completed 09/26/2023 Pneumococcal Vaccine: 50+ Years Completed 12/26/2023, 01/28/2020, 09/25/2014, Additional history exists HIB Vaccines Aged Out No longer eligi [...] on patient's age to complete this topic Procedures Procedure Name Priority Date/Time Associated Diagnosis Comments TRANSTHORACIC ECHOCARDIOGRAM (TTE) COMPLETE Routine 08/30/2025 3:24 PM EDT Family history of hypertrophic cardiomyopathy from Last 3 Months Results * TRANSTHORACIC ECHOCARDIOGRAM (TTE) COMPLETE (08/30/2025 3:24 PM EDT) Anatomical Region Laterality Modality Ultrasound us Jad Escobar MD CV ECHO PROCEDURES Final Resul t from Last 3 [place] [id number] [facility] Care Teams Tower Equipment Installer Relationship Specialty Start Date End Date Jhon Collins MD [address] [place] [address] PCP - General Internal Medicine 11/22/18
== END 2025-11-05 15:23 | disposition home or self-care (01) ==
LOC: HO.CT 15:22
PROVIDERS: PCP Internal Medicine; Visit Provider Hospitalist
DX: C34.90 Malignant neoplasm of unspecified part of unspecified bronchus or lung (principal); R91.8 Other nonspecific abnormal finding of lung field
CPT/HCPCS: 71250

== ENCOUNTER → 2025-11-05 15:24 | Outpatient (BNV) | payer BC, SELFPAY | PROVIDERS: PCP Internal Medicine; Visit Provider Radiology Diagnostic Radiology | DX: C34.90 Malignant neoplasm of unspecified part of unspecified bronchus or lung (principal); R91.8 Other nonspecific abnormal finding of lung field | CPT/HCPCS: 71250 ==